=== PATIENT | male | born 1965 | race African-American/Black ===

== ENCOUNTER 2017-12-02 14:42 | Inpatient (IN) | payer OTHER ==
[2017-12-02 16:17] VITALS: BMI 26.3
--- NOTE | 2017-12-02 18:09 | HP ---
COWS - Scale Resting Pulse: 0= [place] 80 or Below Sweatin= Chills/Flushing Restless Observation: 1= Difficult to Sit Still Pupil Size: 0= Normal to Room Light Bone or Joint Aches: 2= Severe Diffuse Aches Runny Nose/ Eye Tearin= Runny Nose/Eyes GI Upset > 30mins: 2= Nausea/Diarrhea Tremor Observation: 2= Slight Tremor Visible Yawning Observation: 1= 1-2x During Session Anxiety or Irritability: 2=Irritable/Anxious Goose Flesh Skin: 0=Smooth Skin COWS Score: 13 CIWA Score - CIWA Score Nausea/Vomitin-Mild Nausea/No Vomiting Muscle Tremors: 3 Anxiety: 3 Agitation: 1-Slight > Activity Paroxysmal Sweats: 3 Orientation: 0-Oriented Tacttile Disturbances: 1-Very Mild Itch/Numbness Auditory Disturbances: 0-None Visual Disturbances: 0-None Headache: 2-Mild CIWA-Ar Total Score: 14 Admission [facility] - HPI Chief Complaint: Patient presents for ETOH withdrawal symptoms. Last drink 4 days ago. Pt drinks a 6 pack of beer and 2 pints of vodka daily. Denies any seizures with withdrawal. Also sniffs heroin and states heroin is sometimes mixed with non prescribed methadone. No report of significant PMH. Denies suicidal ideation and any suicide attempts. Allergies/Adverse Reactions: Allergies Allergy/AdvReac Type Severity Reaction Status Date / Time No Known Allergies Allergy Verified 12/02/17 17:16 Exam Limitations: No Limitations - Ebola screening Have you traveled outside of the country in the last 21 days: No Have you had contact with anyone from an Ebola affected area: No Have you been sick,other than usual withdrawal symptoms: No Do you have a fever: No - Review of Systems Constitutional: Night Sweats, Changes in sleep EENT: reports: Nose Congestion Respiratory: reports: No Symptoms reported Cardiac: reports: No Symptoms Reported GI: reports: Diarrhea, Nausea, Poor Fluid Intake : reports: No Symptoms Reported Musculoskeletal: reports: Muscle Pain Integumentary: reports: Sweating (sweaty on scalp) Neuro: reports: Numbness, Tremors Endocrine: reports: No Symptoms Reported Hematology: reports: No Symptoms Reported Psychiatric: reports: Orientated x3, Anxious, Depressed Patient History - Patient Medical History Hx Asthma: No Hx Chronic Obstructive Pulmonary Disease (COPD): No Hx Cancer: No Hx Cardiac Disorders: No Hx Congestive Heart Failure: No Hx Hypertension: Yes Hx Hypercholesterolemia: No Hx Pacemaker: No HX Cerebrovascular Accident: No Hx Seizures: No Hx Dementia: No Hx Diabetes: No Hx Gastrointestinal Disorders: No Hx Liver Disease: No Hx Genitourinary Disorders: No Hx Sexually Transmitted Disorders: No Hx Renal Disease (ESRD): No Hx Thyroid Disease: No Hx Human Immunodeficiency Virus (HIV): No Hx Hepatitis C: No Hx Depression: Yes Hx Suicide Attempt: No Hx Bipolar Disorder: No Hx Schizophrenia: No - Patient Surgical History Past Surgical History: No Hx Neurologic Surgery: No Hx Cataract Extraction: No Hx Cardiac Surgery: No Hx Lung Surgery: No Hx Breast Surgery: No Hx Breast Biopsy: No Hx Abdominal Surgery: No Hx Appendectomy: No Hx Cholecystectomy: No Hx Genitourinary Surgery: No Hx Section: No Hx Orthopedic Surgery: No Anesthesia Reaction: No - PPD History Previous Implant?: Yes Documented Results: Negative w/o proof Implanted On Prior R Admission?: No - Smoking Cessation Smoking history: Current every day smoker Have you smoked in the past 12 months: Yes Aproximately how many cigarettes per day: 20 Hx Chewing Tobacco Use: No Initiated information on smoking cessation: Yes 'Breaking Loose' booklet given: 12/02/17 - Substance & Tx. History Hx Alcohol Use: Yes Hx Substance Use: Yes Substance Use Type: Alcohol, Cocaine, Heroin Hx Substance Use Treatment: Yes - Substances Abused Heroin Route: Inhalation Frequency: Daily Amount used: 4 bags Age of first use: 16 Date of Last Use: 11/30/17 Cocaine Route: Inhalation Frequency: Daily Amount used: $50-100 Age of first use: 16 Date of Last Use: 11/30/17 Alcohol-vodka/beer Route: Oral Frequency: Daily Amount used: 2 pts./1-6 pk. Age of first use: 16 Date of Last Use: 11/30/17 Family Disease History - Family Disease History Family Disease History: Heart Disease: Grandparent (, HTN), Other: Mother () Admission Physical Exam BHS - Vital Signs Vital Signs: Vital Signs - 24 hr 12/02/17 16:15 Temperature 97.6 F Pulse Rate 69 Respiratory 18 Rate Blood Pressure 141/85 - Physical General Appearance: Yes: Disheveled, Anxious HEENTM: Yes: EOMI, Hearing grossly Normal, KEN, Pharynx Normal Respiratory: Yes: Within Normal Limits, Chest Non-Tender, Lungs Clear, Normal Breath Sounds, No Respiratory Distress Neck: Yes: Within Normal Limits, No masses,lesions,Nodules, Supple Breast: Yes: Breast Exam Deferred Cardiology: Yes: Within Normal Limits, Regular Rhythm, Regular Rate, S1, S2 Abdominal: Yes: Within Normal Limits, Normal Bowel Sounds, Non Tender, Soft Genitourinary: Yes: Within Normal Limits Back: Yes: Muscle Spasm Musculoskeletal: Yes: Within Normal Limits, Back pain Extremities: Yes: Within Normal Limits, Normal Inspection Neurological: Yes: wire stitcher machine II-XII NML intact, Fully Oriented, Numbness, Depressed Affect Integumentary: Yes: Within Normal Limits, Normal Color, Warm, Moist (head and scalp moist) Lymphatic: Yes: Within Normal Limits - Diagnostic (1) Alcohol withdrawal Current Visit: Yes Status: Acute Qualifiers: Complication of substance-induced condition: with unspecified complication Qualified Code(s): F10.239 - Alcohol dependence with withdrawal, unspecified (2) Opioid dependence with withdrawal Current Visit: Yes Status: Acute (3) Nicotine dependence Current Visit: Yes Status: Acute Qualifiers: Substance use status: unspecified nicotine-induced disorder (4) Depressed mood Current Visit: Yes Status: Acute Cleared for Admission [facility] - Detox or Rehab [facility] Level of Care: Medically Managed Detox Regimen/Protocol: Methadone/Librium S Breath Alcohol Content Breath Alcohol Content: 0 Urine Drug Screen - Results Drug Screen Negative: No Urine Drug Screen Results: JIMENA-Cocaine, OPI-Opiates, MTD-Methadone Inpatient Rehab Admission - Initial Determination Are CD services needed?: Yes Free of communicable disease: Yes Not in need of hospitalization: Yes - Rehab Admission Criteria Previous failed treatment: Yes Poor recovery environment: Yes Comorbidities: Yes Lacks judgement: Yes
[2017-12-02] MEDS ORDERED: P-EPHED 60MG/TRIPROLIDI 2.5MG TABLET PO PRN (18:16)
[2017-12-02] MEDS ORDERED: guaiFENesin/D-METHORPHAN HB 10 ML UNIT-DOSE CUPS PO PRN (18:16)
[2017-12-02] MEDS ORDERED: MAGNESIUM CITRATE 300 ML BOTTLE PO PRN (18:16)
[2017-12-02] MEDS ORDERED: MAGNESIUM HYDROX 2400MG/30ML ORAL SUSPENSION 30 ML CUP PO PRN (18:16)
[2017-12-02] MEDS ORDERED: LOPERAMIDE HCL 2 MG CAPSULE PO PRN (18:16)
[2017-12-02] MEDS ORDERED: ACETAMINOPHEN 325 MG TABLET (FP) PO PRN (18:16)
[2017-12-02] MEDS ORDERED: MENTHOL/PHENOL 1 EACH UD MM PRN (18:16)
[2017-12-02] MEDS ORDERED: hydrOXYzine PAMOATE 50 MG CAPSULE (FP) PO PRN (18:16)
[2017-12-02] MEDS ORDERED: MAG HYDROX/AL HYDROX/SIMETH 30 ML UNIT-DOSE CUP PO PRN (18:16)
[2017-12-02] MEDS ORDERED: NICOTINE POLACRILEX 2 MG GUM BUC PRN (18:16)
[2017-12-02] MEDS ORDERED: IBUPROFEN 400 MG TABLET (FP) PO PRN (18:16)
[2017-12-02] MEDS ORDERED: chlordiazePOXIDE HCL 25 MG CAPSULE PO ONE (18:22)
[2017-12-02] MEDS ORDERED: chlordiazePOXIDE HCL 25 MG CAPSULE PO PRN (18:22)
[2017-12-02] MEDS ORDERED: METHADONE HCL 10 MG TABLET (FOR DETOX USE ONLY) PO ONE ×2 (18:30→23:00)
[2017-12-02] MEDS ORDERED: MELATONIN 5 MG TABLETS PO PRN (22:00)
[2017-12-02] MEDS: chlordiazePOXIDE HCL 25 MG CAPSULE PO SCH (22:36)
[2017-12-02] MEDS: THIAMINE HCL 100 MG TABLET (FP) PO SCH (22:37)
[2017-12-03] MEDS: chlordiazePOXIDE HCL 25 MG CAPSULE PO SCH ×4 (05:26→22:48)
[2017-12-03] MEDS ORDERED: METHADONE HCL 10 MG TABLET (FOR DETOX USE ONLY) PO SCH (10:00)
--- NOTE | 2017-12-03 10:15 | EKG ---
Test Reason : Blood Pressure : / mmHG Vent. Rate : 063 BPM Atrial Rate : 063 BPM P-R Int : 182 ms QRS Dur : 090 ms QT Int : 382 ms P-R-T Axes : 072 044 052 degrees QTc Int : 390 ms NORMAL SINUS RHYTHM SEPTAL INFARCT , AGE UNDETERMINED ABNORMAL ECG NO PREVIOUS ECGS AVAILABLE Confirmed by Umer Neves MD ([id number]) on 12/03/2017 10:14:33 AM Referred By: Confirmed By:Umer Neves MD
[2017-12-03] MEDS: PRENATAL VITAMINS W/ FOLIC ACID TABLET (FP) PO SCH (10:45)
[2017-12-03] MEDS: NICOTINE 21 MG/24 HOURS TOPICAL PATCH TD SCH (10:46)
--- NOTE | 2017-12-03 12:03 | PN ---
S CIWA - CIWA Score Nausea/Vomitin Muscle Tremors: 3 Anxiety: 3 Agitation: 2 Paroxysmal Sweats: 1-Minimal Palms Moist Orientation: 0-Oriented Tacttile Disturbances: 1-Very Mild Itch/Numbness Auditory Disturbances: 1-Very Mild Visual Disturbances: 0-None Headache: 2-Mild CIWA-Ar Total Score: 16 BHS COWS - Scale Resting Pulse: 0= [place] 80 or Below Sweatin= Chills/Flushing Restless Observation: 3= Extraneous Movement Pupil Size: 1= Pupils >than Normal Bone or Joint Aches: 2= Severe Diffuse Aches Runny Nose/ Eye Tearin= Runny Nose/Eyes GI Upset > 30mins: 2= Nausea/Diarrhea Tremor Observation of Outstretched Hands: 2= Slight Tremor Visible Yawning Observation: 1= 1-2x During Session Anxiety or Irritability: 2=Irritable/Anxious Goose Flesh Skin: 0=Smooth Skin COWS Score: 16 BHS Progress Note (SOAP) Subjective: ALERT,IRRITABLE,ANXIOUS,INTERRUPTED SLEEP,TREMOR,PAIN IN THE BODY AND BACK Objective: 12/03/17 11:59 Vital Signs Temperature 96.8 F L 12/03/17 10:00 Pulse Rate 85 12/03/17 10:00 Respiratory Rate 20 12/03/17 10:00 Blood Pressure 145/86 12/03/17 10:00 O2 Sat by Pulse Oximetry (%) EKG NSR,90/MIN ST IN V2 NO CHEST PAIN,NO SOB,NO DIZZINESS Assessment: 12/03/17 12:01 WITHDRAWAL SYMPTOM Plan: CONTINUE DETOX,DISCUSSED WITH THE PATIENT FOR THE COMPLIANCE WITH UNIT RULE AND BLOOD TEST,PATIENT UNDERSTAND AND WILL COMPLY
--- NOTE | 2017-12-03 13:41 | CONSULT ---
[facility] Psychiatric Consult - Data Date of interview: 12/03/17 Admission source: [facility] Identifying data: Pt. is a 52 year old male, without kids, unemployed and currently living with a friend. This is patient's first admission to detox at [facility]. Pt. admitted to for alcohol, cocaine, and opioid dependence. Substance Abuse History: Following information confirmed with Mr. Phipps: Smoking Cessation. Smoking history: Current every day smoker. Have you smoked in the past 12 months: Yes. Aproximately how many cigarettes per day: 20. Hx Chewing Tobacco Use: No. Initiated information on smoking cessation: Yes. ' Breaking Loose' booklet given: 12/02/17. - Substance & Tx. History. Hx Alcohol Use: Yes. Hx Substance Use: Yes. Substance Use Type: Alcohol, Cocaine , Heroin. Hx Substance Use Treatment: Yes. - Substances Abused. Heroin. Route: Inhalation. Frequency: Daily. Amount used: 4 bags. Age of first use: 16. Date of Last Use: 11/30/17. Cocaine. Route: Inhalation. Frequency: Daily. Amount used: $50-100. Age of first use: 16. Date of Last Use: . Alcohol-vodka/beer. Route: Oral. Frequency: Daily. Amount used: 2 pts./1-6 pk. Age of first use: 16. Date of Last Use: 11/30/17 Medical History: hypertension Psychiatric History: Pt. with an unclear psychiatric history. Pt. reports multiple psychiatric hospitalizations with the most recent hospitalization occuring approximately 10 years ago. Pt. denies outpatient care. States he is prescribed haldol 10mg, Cogentin 2mg and Mirtzapine 45mg qhs. Pharmacy claims reviewed. Reports taking his psychiatric medication two days ago. Pt. reports getting his medications from "[facility] States he is diagnosed with Schizophrenia. Pt. reports one suicide attempt via laying down on train tracks "years ago." Pt. currently denies suicidal and homicial ideation. Physical/Sexual Abuse/Trauma History: Denies. Mental Status Exam - Mental Status Exam Alert and Oriented to: Time, Place, Person Cognitive Function: Good Patient Appearance: Unkempt Mood: Withdrawn Affect: Mood Congruent Patient Behavior: Sedated (Pt. able to be awaken to complete interview. ), Fatigued, Guarded Speech Pattern: Delayed Voice Loudness: Moderately Soft/Quiet Thought Process: Goal Oriented Thought Disorder: Not Present Hallucinations: Denies Suicidal Ideation: Denies Homicidal Ideation: Denies Insight/Judgement: Poor Sleep: Fair Appetite: Good Muscle strength/Tone: Normal Gait/Station: Normal Psychiatric Findings - Problem List ([place] 1, 2,3) (1) Schizophrenia Current Visit: Yes Status: Chronic Comment: History. (2) Alcohol withdrawal Current Visit: Yes Status: Acute Qualifiers: Complication of substance-induced condition: with unspecified complication Qualified Code(s): F10.239 - Alcohol dependence with withdrawal, unspecified (3) Nicotine dependence Current Visit: Yes Status: Acute Qualifiers: Substance use status: unspecified nicotine-induced disorder (4) Opioid dependence with withdrawal Current Visit: Yes Status: Acute (5) Cocaine dependence Current Visit: Yes Status: Acute - Initial Treatment Plan Initial Treatment Plan: Psychoeducation provided. Detoxification in progress. Pt. refusing to resume/restart his psychotrophic medications due to feeling sedated from current detox protocol medications. Pt. made aware of the risk of the not accepting his psychotrophic medications. No psychotic symptoms noted. Will continue to monitor patient.
[2017-12-03 18:06] LABS: URINE APPEARANCE CLEAR; URINE BILIRUBIN NEGATIVE (<2.0 mg/dL); URINE BLOOD NEGATIVE (NEGATIVE); URINE COLOR YELLOW; URINE GLUCOSE (UA) NEGATIVE (NEGATIVE); URINE KETONE NEGATIVE (NEGATIVE); URINE LEUK ESTERASE NEGATIVE (NEGATIVE); URINE NITRITE NEGATIVE (NEGATIVE); URINE PROTEIN NEGATIVE (NEGATIVE)
[2017-12-03] MEDS: THIAMINE HCL 100 MG TABLET (FP) PO SCH (22:48)
[2017-12-04] MEDS: chlordiazePOXIDE HCL 25 MG CAPSULE PO SCH ×3 (05:57→17:42)
[2017-12-04] MEDS: METHADONE HCL 5 MG TABLET (FOR DETOX USE ONLY) PO SCH (10:11)
[2017-12-04] MEDS: PRENATAL VITAMINS W/ FOLIC ACID TABLET (FP) PO SCH (10:11)
[2017-12-04 10:12] LABS: HEMATOCRIT 37.6 % (35.4-49); HEMOGLOBIN 12.7 GM/dL (11.7-16.9); MCH 31.7 pg (25.7-33.7); MCHC 33.8 g/dl (32.0-35.9); MEAN CELL VOLUME 93.8 fl (80-96); MEAN PLT VOLUME 9.2 fl (7.5-11.1); PLATELET COUNT 156 K/MM3 (134-434); RBC 4.01 M/mm3 (4.00-5.60); RDW 13.5 % (11.9-15.9); WHITE BLOOD COUNT 7.5 K/mm3 (4.0-10.0)
[2017-12-04] MEDS: NICOTINE 21 MG/24 HOURS TOPICAL PATCH TD SCH (10:16)
--- NOTE | 2017-12-04 10:41 | PN ---
S CIWA - CIWA Score Nausea/Vomitin Muscle Tremors: 3 Anxiety: 3 Agitation: 2 Paroxysmal Sweats: 1-Minimal Palms Moist Orientation: 0-Oriented Tacttile Disturbances: 1-Very Mild Itch/Numbness Auditory Disturbances: 1-Very Mild Visual Disturbances: 0-None Headache: 2-Mild CIWA-Ar Total Score: 16 BHS COWS - Scale Resting Pulse: 1= [place] 81-100 Sweatin= Chills/Flushing Restless Observation: 3= Extraneous Movement Pupil Size: 1= Pupils >than Normal Bone or Joint Aches: 2= Severe Diffuse Aches Runny Nose/ Eye Tearin= Runny Nose/Eyes GI Upset > 30mins: 2= Nausea/Diarrhea Tremor Observation of Outstretched Hands: 2= Slight Tremor Visible Yawning Observation: 1= 1-2x During Session Anxiety or Irritability: 2=Irritable/Anxious Goose Flesh Skin: 0=Smooth Skin COWS Score: 17 S Progress Note (SOAP) Subjective: ALERT,IRRITABLE,ANXIOUS,INTERRUPTED SLEEP,PAIN IN THE BODY AND BACK Objective: 12/04/17 10:40 Vital Signs Temperature 99.5 F 12/04/17 09:12 Pulse Rate 93 H 12/04/17 09:12 Respiratory Rate 18 12/04/17 09:12 Blood Pressure 135/93 12/04/17 09:12 O2 Sat by Pulse Oximetry (%) Laboratory Last Values WBC 7.5 K/mm3 (4.0-10.0) 12/04/17 07:00 RBC 4.01 M/mm3 (4.00-5.60) 12/04/17 07:00 Hgb 12.7 GM/dL (11.7-16.9) 12/04/17 07:00 Hct 37.6 % (35.4-49) 12/04/17 07:00 MCV 93.8 fl (80-96) 12/04/17 07:00 MCH 31.7 pg (25.7-33.7) 12/04/17 07:00 MCHC 33.8 g/dl (32.0-35.9) 12/04/17 07:00 RDW 13.5 % (11.9-15.9) 12/04/17 07:00 Plt Count 156 K/MM3 (134-434) 12/04/17 07:00 MPV 9.2 fl (7.5-11.1) 12/04/17 07:00 Urine Color Yellow 12/02/17 17:00 Urine Appearance Clear 12/02/17 17:00 Urine pH 6.0 (5.0-8.0) 12/02/17 17:00 Ur Specific [place] 1.020 (1.001-1.035) 12/02/17 17:00 Urine Protein Negative (NEGATIVE) 12/02/17 17:00 Urine Glucose (UA) Negative (NEGATIVE) 12/02/17 17:00 Urine Ketones Negative (NEGATIVE) 12/02/17 17:00 Urine Blood Negative (NEGATIVE) 12/02/17 17:00 Urine Nitrite Negative (NEGATIVE) 12/02/17 17:00 Urine Bilirubin Negative (<2.0 mg/dL) 12/02/17 17:00 Urine Urobilinogen 2.0 mg/dL (0.2-1.0) 12/02/17 17:00 Ur Leukocyte Esterase Negative (NEGATIVE) 12/02/17 17:00 LABS PENDING Assessment: 12/04/17 10:40 WITHDRAWAL SYMPTOM Plan: CONTINUE DETOX
[2017-12-04 10:52] LABS: CHLORIDE 99 mmol/L (98-107); POTASSIUM 3.8 mmol/L (3.5-5.1); SODIUM 133 mmol/L (136-145)
[2017-12-04 11:28] LABS: ALBUMIN 3.4 g/dl (3.4-5.0); ALK PHOS 71 U/L (45-117); ANION GAP 3 (8-16); BILIRUBIN,TOTAL 0.4 mg/dL (0.2-1.0); BLOOD UREA NITROGEN 18 mg/dL (7-18); CALCIUM 8.8 mg/dL (8.5-10.1); CHOLESTEROL 177 mg/dL (50-200); CO2 31 mmol/L (21-32); CREATININE 0.8 mg/dL (0.7-1.3); GLUCOSE,RANDOM 88 mg/dL (74-106); HDL CHOLESTEROL 65 mg/dL (40-60); LDL CHOLESTEROL (ONLY SJRH) 95 mg/dL (5-100); SGOT/AST 26 U/L (15-37); SGPT/ALT 30 U/L (12-78); TOT PROT 6.7 g/dl (6.4-8.2); TRIGLYCERIDES 104 mg/dL (35-160)
[2017-12-04] MEDS: THIAMINE HCL 100 MG TABLET (FP) PO SCH (22:11)
[2017-12-04] MEDS: chlordiazePOXIDE 5 MG CAPSULE PO SCH (22:12)
[2017-12-05] MEDS: chlordiazePOXIDE 5 MG CAPSULE PO SCH ×3 (05:22→17:40)
--- NOTE | 2017-12-05 10:23 | PN ---
S Progress Note (SOAP) Subjective: ALERT,IRRITABLE,ANXIOUS,INTERRUPTED SLEEP,PAIN IN THE WATER Objective: 12/05/17 10:22 Vital Signs Temperature 99.7 F H 12/05/17 10:13 Pulse Rate 83 12/05/17 10:13 Respiratory Rate 2 L 12/05/17 10:13 Blood Pressure 108/73 12/05/17 10:13 O2 Sat by Pulse Oximetry (%) Laboratory Last Values WBC 7.5 K/mm3 (4.0-10.0) 12/04/17 07:00 RBC 4.01 M/mm3 (4.00-5.60) 12/04/17 07:00 Hgb 12.7 GM/dL (11.7-16.9) 12/04/17 07:00 Hct 37.6 % (35.4-49) 12/04/17 07:00 MCV 93.8 fl (80-96) 12/04/17 07:00 MCH 31.7 pg (25.7-33.7) 12/04/17 07:00 MCHC 33.8 g/dl (32.0-35.9) 12/04/17 07:00 RDW 13.5 % (11.9-15.9) 12/04/17 07:00 Plt Count 156 K/MM3 (134-434) 12/04/17 07:00 MPV 9.2 fl (7.5-11.1) 12/04/17 07:00 Sodium 133 mmol/L (136-145) L 12/04/17 07:00 Potassium 3.8 mmol/L (3.5-5.1) 12/04/17 07:00 Chloride 99 mmol/L (98-107) 12/04/17 07:00 Carbon Dioxide 31 mmol/L (21-32) 12/04/17 07:00 Anion Gap 3 (8-16) L 12/04/17 07:00 BUN 18 mg/dL (7-18) 12/04/17 07:00 Creatinine 0.8 mg/dL (0.7-1.3) 12/04/17 07:00 Creat Clearance w eGFR > 60 (>60) 12/04/17 07:00 Random Glucose 88 mg/dL (74-106) 12/04/17 07:00 Calcium 8.8 mg/dL (8.5-10.1) 12/04/17 07:00 Total Bilirubin 0.4 mg/dL (0.2-1.0) 12/04/17 07:00 AST 26 U/L (15-37) 12/04/17 07:00 ALT 30 U/L (12-78) 12/04/17 07:00 Alkaline Phosphatase 71 U/L (45-117) 12/04/17 07:00 Total Protein 6.7 g/dl (6.4-8.2) 12/04/17 07:00 Albumin 3.4 g/dl (3.4-5.0) 12/04/17 07:00 Triglycerides 104 mg/dL (35-160) 12/04/17 07:00 Cholesterol 177 mg/dL (50-200) 12/04/17 07:00 Total LDL Cholesterol 95 mg/dL (5-100) 12/04/17 07:00 HDL Cholesterol 65 mg/dL (40-60) H 12/04/17 07:00 Urine Color Yellow 12/02/17 17:00 Urine Appearance Clear 12/02/17 17:00 Urine pH 6.0 (5.0-8.0) 12/02/17 17:00 Ur Specific [employer] 1.020 (1.001-1.035) 12/02/17 17:00 Urine Protein Negative (NEGATIVE) 12/02/17 17:00 Urine Glucose (UA) Negative (NEGATIVE) 12/02/17 17:00 Urine Ketones Negative (NEGATIVE) 12/02/17 17:00 Urine Blood Negative (NEGATIVE) 12/02/17 17:00 Urine Nitrite Negative (NEGATIVE) 12/02/17 17:00 Urine Bilirubin Negative (<2.0 mg/dL) 12/02/17 17:00 Urine Urobilinogen 2.0 mg/dL (0.2-1.0) 12/02/17 17:00 Ur Leukocyte Esterase Negative (NEGATIVE) 12/02/17 17:00 Assessment: 12/05/17 10:23 WITHDRAWAL SYMPTOM Plan: CONTINUE DETOX
[2017-12-05] MEDS: PRENATAL VITAMINS W/ FOLIC ACID TABLET (FP) PO SCH (10:35)
[2017-12-05] MEDS: NICOTINE 21 MG/24 HOURS TOPICAL PATCH TD SCH (10:38)
[2017-12-05] MEDS: METHADONE HCL 5 MG TABLET (FOR DETOX USE ONLY) PO SCH (10:38)
[2017-12-05] MEDS: THIAMINE HCL 100 MG TABLET (FP) PO SCH (22:14)
[2017-12-05] MEDS: chlordiazePOXIDE HCL 10 MG CAPSULE PO SCH (22:14)
[2017-12-06] MEDS: chlordiazePOXIDE HCL 10 MG CAPSULE PO SCH ×3 (06:50→17:12)
[2017-12-06] MEDS ORDERED: METHADONE HCL 10 MG TABLET (FOR DETOX USE ONLY) PO SCH (10:00)
[2017-12-06] MEDS: NICOTINE 21 MG/24 HOURS TOPICAL PATCH TD SCH (10:12)
[2017-12-06] MEDS: PRENATAL VITAMINS W/ FOLIC ACID TABLET (FP) PO SCH (10:12)
--- NOTE | 2017-12-06 10:41 | PN ---
S Progress Note (SOAP) Subjective: ALERT,IRRITABLE,INTERRUPTED SLEEP Objective: 12/06/17 10:41 Vital Signs Temperature 98.1 F 12/06/17 10:23 Pulse Rate 89 12/06/17 10:23 Respiratory Rate 18 12/06/17 10:23 Blood Pressure 109/65 12/06/17 10:23 O2 Sat by Pulse Oximetry (%) Assessment: 12/06/17 10:41 WITHDRAWAL SYMPTOM Plan: CONTINUE DETOX,DISCHARGE IN AM
[2017-12-06] MEDS: THIAMINE HCL 100 MG TABLET (FP) PO SCH (22:55)
[2017-12-07] MEDS ORDERED: METHADONE HCL 5 MG TABLET (FOR DETOX USE ONLY) PO SCH (06:00)
[2017-12-07 06:16] VITALS: BP 130/87; PULSE 64; TEMP 97
--- NOTE | 2017-12-07 09:58 | DS ---
[facility] Detox Discharge Summary Admission Date: 12/02/17 Discharge Date: 12/07/17 - History Present History: Alcohol Dependence, Cocaine Dependence, Opioid Dependence Pertinent Past History: 52 y/o man with ETOH, heroin and non prescribed methadone use. He has no significant medical history. - Physical Exam Results Vital Signs: Vital Signs Temperature 97.0 F L 12/07/17 06:00 Pulse Rate 64 12/07/17 06:00 Respiratory Rate 18 12/07/17 06:00 Blood Pressure 130/87 12/07/17 06:00 O2 Sat by Pulse Oximetry (%) Pertinent Admission Physical Exam Findings: withdrawal sx Laboratory Last Values WBC 7.5 K/mm3 (4.0-10.0) 12/04/17 07:00 RBC 4.01 M/mm3 (4.00-5.60) 12/04/17 07:00 Hgb 12.7 GM/dL (11.7-16.9) 12/04/17 07:00 Hct 37.6 % (35.4-49) 12/04/17 07:00 MCV 93.8 fl (80-96) 12/04/17 07:00 MCH 31.7 pg (25.7-33.7) 12/04/17 07:00 MCHC 33.8 g/dl (32.0-35.9) 12/04/17 07:00 RDW 13.5 % (11.9-15.9) 12/04/17 07:00 Plt Count 156 K/MM3 (134-434) 12/04/17 07:00 MPV 9.2 fl (7.5-11.1) 12/04/17 07:00 Sodium 133 mmol/L (136-145) L 12/04/17 07:00 Potassium 3.8 mmol/L (3.5-5.1) 12/04/17 07:00 Chloride 99 mmol/L (98-107) 12/04/17 07:00 Carbon Dioxide 31 mmol/L (21-32) 12/04/17 07:00 Anion Gap 3 (8-16) L 12/04/17 07:00 BUN 18 mg/dL (7-18) 12/04/17 07:00 Creatinine 0.8 mg/dL (0.7-1.3) 12/04/17 07:00 Creat Clearance w eGFR > 60 (>60) 12/04/17 07:00 Random Glucose 88 mg/dL (74-106) 12/04/17 07:00 Calcium 8.8 mg/dL (8.5-10.1) 12/04/17 07:00 Total Bilirubin 0.4 mg/dL (0.2-1.0) 12/04/17 07:00 AST 26 U/L (15-37) 12/04/17 07:00 ALT 30 U/L (12-78) 12/04/17 07:00 Alkaline Phosphatase 71 U/L (45-117) 12/04/17 07:00 Total Protein 6.7 g/dl (6.4-8.2) 12/04/17 07:00 Albumin 3.4 g/dl (3.4-5.0) 12/04/17 07:00 Triglycerides 104 mg/dL (35-160) 12/04/17 07:00 Cholesterol 177 mg/dL (50-200) 12/04/17 07:00 Total LDL Cholesterol 95 mg/dL (5-100) 12/04/17 07:00 HDL Cholesterol 65 mg/dL (40-60) H 12/04/17 07:00 Urine Color Yellow 12/02/17 17:00 Urine Appearance Clear 12/02/17 17:00 Urine pH 6.0 (5.0-8.0) 12/02/17 17:00 Ur Specific [place] 1.020 (1.001-1.035) 12/02/17 17:00 Urine Protein Negative (NEGATIVE) 12/02/17 17:00 Urine Glucose (UA) Negative (NEGATIVE) 12/02/17 17:00 Urine Ketones Negative (NEGATIVE) 12/02/17 17:00 Urine Blood Negative (NEGATIVE) 12/02/17 17:00 Urine Nitrite Negative (NEGATIVE) 12/02/17 17:00 Urine Bilirubin Negative (<2.0 mg/dL) 12/02/17 17:00 Urine Urobilinogen 2.0 mg/dL (0.2-1.0) 12/02/17 17:00 Ur Leukocyte Esterase Negative (NEGATIVE) 12/02/17 17:00 RPR Titer Nonreactive (NONREACTIVE) 12/04/17 07:00 Labs noted - Treatment Hospital Course: Detox Protocol Followed, Detoxed Safely, Responded well, Discharged Condition Good - Medication Discharge Medications: Ambulatory Orders NK [No Known Home Medication] 12/02/17 - Diagnosis (1) Alcohol withdrawal Status: Acute Qualifiers: Complication of substance-induced condition: with unspecified complication Qualified Code(s): F10.239 - Alcohol dependence with withdrawal, unspecified (2) Cocaine dependence Status: Acute (3) Depressed mood Status: Acute (4) Nicotine dependence Status: Acute Qualifiers: Substance use status: unspecified nicotine-induced disorder (5) Opioid dependence with withdrawal Status: Acute (6) Schizophrenia Status: Chronic - AMA Did Patient Leave Against Medical Advice: No
== END 2017-12-07 08:52 | disposition home or self-care (01) | DRG 773 ==
LOC: YASAS 14:42 → Y6N 18:05
PROVIDERS: ADMIT Internal Medicine; ATTEND Internal Medicine
PROC: HZ2ZZZZ Detoxification Services for Substance Abuse Treatment (ICD-10-PCS; principal; 2017-12-02)
DX: F11.23 Opioid dependence with withdrawal (principal); F10.230 Alcohol dependence with withdrawal, uncomplicated; F14.20 Cocaine dependence, uncomplicated; F17.210 Nicotine dependence, cigarettes, uncomplicated; F20.9 Schizophrenia, unspecified; F32.9 Major depressive disorder, single episode, unspecified
CPT/HCPCS: 36415; 80053; 80061; 81003; 83721; 85027; 86593; 93005; 93010

== ENCOUNTER 2018-05-16 18:44 | Inpatient (IN) | payer OTHER ==
[2018-05-16 20:46] VITALS: BMI 25.0
--- NOTE | 2018-05-16 21:59 | HP ---
Admission ROS [facility] - [facility] Chief Complaint: 52 years old male with cocaine dependence is seeking admission to Rehab Allergies/Adverse Reactions: Allergies Allergy/AdvReac Type Severity Reaction Status Date / Time No Known Allergies Allergy Verified 12/02/17 17:16 History of Present Illness: 52 years old male with a long history of cocaine dependence is seeking admission to Rehab. This is his first admission to Rehab. He reports history of asthma, hypertension and depression. He denies suicidal ideation at this time Exam Limitations: No Limitations - Ebola screening Have you traveled outside of the country in the last 21 days: No (N) Have you had contact with anyone from an Ebola affected area: No Have you been sick,other than usual withdrawal symptoms: No Do you have a fever: No - Review of Systems Constitutional: No Symptoms Reported EENT: reports: No Symptoms Reported Respiratory: reports: No Symptoms reported Cardiac: reports: No Symptoms Reported GI: reports: No Symptoms Reported : reports: No Symptoms Reported Musculoskeletal: reports: No Symptoms Reported Integumentary: reports: No Symptoms Reported Neuro: reports: No Symptoms reported Endocrine: reports: No Symptoms Reported Hematology: reports: No Symptoms Reported Psychiatric: reports: No Sypmtoms Reported, Mood/Affect Appropiate, Orientated x3 Other Systems: Reviewed and Negative Patient History - Patient Medical History Hx Asthma: Yes (Not on medication) Hx Chronic Obstructive Pulmonary Disease (COPD): No Hx Cancer: No Hx Cardiac Disorders: No Hx Congestive Heart Failure: No Hx Hypertension: Yes (Not on medication) Hx Hypercholesterolemia: No Hx Pacemaker: No HX Cerebrovascular Accident: No Hx Seizures: No Hx Dementia: No Hx Diabetes: No Hx Gastrointestinal Disorders: No Hx Liver Disease: No Hx Genitourinary Disorders: No Hx Sexually Transmitted Disorders: No Hx Renal Disease (ESRD): No Hx Thyroid Disease: No Hx Human Immunodeficiency Virus (HIV): No Hx Hepatitis C: No Hx Depression: Yes (Not on medication) Hx Suicide Attempt: No Hx Bipolar Disorder: No Hx Schizophrenia: No - Patient Surgical History Past Surgical History: No Hx Neurologic Surgery: No Hx Cataract Extraction: No Hx Cardiac Surgery: No Hx Lung Surgery: No Hx Abdominal Surgery: No Hx Appendectomy: No Hx Cholecystectomy: No Hx Genitourinary Surgery: No Hx Orthopedic Surgery: No Anesthesia Reaction: No - PPD History Previous Implant?: Yes Documented Results: Negative w/proof Implanted On Prior R Admission?: Yes Date: 12/04/17 PPD to be Administered?: No - Reproductive History Patient is a Female of Child Bearing Age (11 -55 yrs old): No (MALE) - Smoking Cessation Smoking history: Current every day smoker Have you smoked in the past 12 months: Yes Aproximately how many cigarettes per day: 20 Hx Chewing Tobacco Use: No Initiated information on smoking cessation: Yes 'Breaking Loose' booklet given: 05/16/18 - Substance & Tx. History Hx Alcohol Use: Yes Hx Substance Use: Yes Substance Use Type: Alcohol, Cocaine Hx Substance Use Treatment: Yes ([facility]) Family Disease History - Family Disease History Family Disease History: Heart Disease: Grandparent (, HTN), Other: Mother () Admission Physical Exam [facility] - Vital Signs Vital Signs: Vital Signs - 24 hr 05/16/18 20:45 Temperature 99.4 F Pulse Rate 70 Respiratory 18 Rate Blood Pressure 108/73 - Physical General Appearance: Yes: No Apparent Distress HEENTM: Yes: EOMI, Normal ENT Inspection, Normocephalic, Normal Voice, KEN Respiratory: Yes: Lungs Clear, Normal Breath Sounds Neck: Yes: Supple Breast: Yes: Breast Exam Deferred Cardiology: Yes: Regular Rhythm, Regular Rate, S1, S2 Abdominal: Yes: Normal Bowel Sounds, Soft Genitourinary: Yes: Within Normal Limits Back: Yes: Normal Inspection Musculoskeletal: Yes: Within Normal Limits, Gait Steady Extremities: Yes: Normal Inspection 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, Alert, Normal Mood/Affect Lymphatic: Yes: Within Normal Limits - Diagnostic (1) Asthma Current Visit: Yes Status: Chronic Qualifiers: Asthma persistence: unspecified (2) Depression Current Visit: Yes Status: Chronic Qualifiers: Depression Type: unspecified Qualified Code(s): F32.9 - Major depressive disorder, single episode, unspecified (3) Hypertension Current Visit: Yes Status: Chronic Qualifiers: Hypertension type: essential hypertension Qualified Code(s): I10 - Essential (primary) hypertension (4) Cocaine dependence Current Visit: No Status: Chronic Qualifiers: Substance use status: uncomplicated Qualified Code(s): F14.20 - Cocaine dependence, uncomplicated (5) Nicotine dependence Current Visit: Yes Status: Chronic Qualifiers: Nicotine product type: cigarettes Substance use status: uncomplicated Qualified Code(s): F17.210 - Nicotine dependence, cigarettes, uncomplicated Cleared for Admission [facility] - Detox or Rehab [facility] Level of Care: Observation Bed Claeared for Rehab Admission: Yes [facility] Breath Alcohol Content Breath Alcohol Content: 0 Urine Drug Screen - Results Drug Screen Negative: No Urine Drug Screen Results: JIMENA-Cocaine, BAR-Barbiturates Inpatient Rehab Admission - Initial Determination Are CD services needed?: Yes Free of communicable disease: Yes Not in need of hospitalization: Yes - Rehab Admission Criteria Previous failed treatment: Yes Poor recovery environment: Yes Comorbidities: Yes Lacks judgement: No Patient is meeting Inpatient Rehab admission criteria:: Yes
[2018-05-16] MEDS ORDERED: MELATONIN 5 MG TABLETS PO PRN (22:00)
[2018-05-16] MEDS ORDERED: P-EPHED 60MG/TRIPROLIDI 2.5MG TABLET PO PRN (22:04)
[2018-05-16] MEDS ORDERED: IBUPROFEN 400 MG TABLET (FP) PO PRN (22:04)
[2018-05-16] MEDS ORDERED: MENTHOL/PHENOL 1 EACH UD MM PRN (22:04)
[2018-05-16] MEDS ORDERED: MAG HYDROX/AL HYDROX/SIMETH 30 ML UNIT-DOSE CUP PO PRN (22:04)
[2018-05-16] MEDS ORDERED: MAGNESIUM HYDROX 2400MG/30ML ORAL SUSPENSION 30 ML CUP PO PRN (22:04)
[2018-05-16] MEDS ORDERED: MAGNESIUM CITRATE 300 ML BOTTLE PO PRN (22:04)
[2018-05-16] MEDS ORDERED: LOPERAMIDE HCL 2 MG CAPSULE PO PRN (22:04)
[2018-05-16] MEDS ORDERED: guaiFENesin/D-METHORPHAN HB 10 ML UNIT-DOSE CUPS PO PRN (22:04)
[2018-05-16] MEDS ORDERED: ACETAMINOPHEN 325 MG TABLET (FP) PO PRN (22:04)
[2018-05-16] MEDS ORDERED: NICOTINE POLACRILEX 2 MG GUM BC PRN (22:04)
[2018-05-17] MEDS: NICOTINE 14 MG/24 HOURS TOPICAL PATCH TD SCH (10:03)
[2018-05-17] MEDS: PRENATAL VITAMINS W/ FOLIC ACID TABLET (FP) PO SCH (10:03)
[2018-05-17 12:38] LABS: HEMATOCRIT 36.2 % (35.4-49); MCH 30.8 pg (25.7-33.7); MCHC 33.1 g/dl (32.0-35.9); MEAN CELL VOLUME 93.1 fl (80-96); MEAN PLT VOLUME 8.4 fl (7.5-11.1); PLATELET COUNT 153 K/MM3 (134-434); RBC 3.88 M/mm3 (4.00-5.60); RDW 13.9 % (11.9-15.9)
[2018-05-17 12:51] LABS: ALBUMIN 3.1 g/dl (3.4-5.0); ANION GAP 10 MMOL/L (8-16); BLOOD UREA NITROGEN 21 mg/dL (7-18); CALCIUM 8.9 mg/dL (8.5-10.1); CHLORIDE 109 mmol/L (98-107); CO2 25 mmol/L (21-32); GLUCOSE,RANDOM 99 mg/dL (74-106); POTASSIUM 4.3 mmol/L (3.5-5.1); SODIUM 144 mmol/L (136-145)
[2018-05-17 12:56] LABS: ALK PHOS 88 U/L (45-117); BILIRUBIN,TOTAL 0.2 mg/dL (0.2-1.0); CREATININE 0.8 mg/dL (0.55-1.3); SGOT/AST 30 U/L (15-37); SGPT/ALT 34 U/L (13-61); TOT PROT 6.1 g/dl (6.4-8.2)
[2018-05-17 13:06] LABS: URINE APPEARANCE CLEAR; URINE BILIRUBIN NEGATIVE (<2.0 mg/dL); URINE COLOR STRAW; URINE GLUCOSE (UA) NEGATIVE (NEGATIVE); URINE KETONE NEGATIVE (NEGATIVE); URINE LEUK ESTERASE NEGATIVE (NEGATIVE); URINE NITRITE NEGATIVE (NEGATIVE); URINE PROTEIN NEGATIVE (NEGATIVE); URINE UROBILINOGEN NEGATIVE mg/dL (0.2-1.0)
[2018-05-17] MEDS: THIAMINE HCL 100 MG TABLET (FP) PO SCH (21:05)
[2018-05-18] MEDS: NICOTINE 14 MG/24 HOURS TOPICAL PATCH TD SCH (10:48)
[2018-05-18] MEDS: PRENATAL VITAMINS W/ FOLIC ACID TABLET (FP) PO SCH (10:49)
[2018-05-18] MEDS: THIAMINE HCL 100 MG TABLET (FP) PO SCH (21:09)
--- NOTE | 2018-05-18 22:32 | EKG ---
Test Reason : Blood Pressure : / mmHG Vent. Rate : 061 BPM Atrial Rate : 061 BPM P-R Int : 186 ms QRS Dur : 086 ms QT Int : 386 ms P-R-T Axes : 075 051 062 degrees QTc Int : 388 ms NORMAL SINUS RHYTHM MODERATE VOLTAGE CRITERIA FOR LVH, MAY BE NORMAL VARIANT BORDERLINE ECG WHEN COMPARED WITH ECG OF 02-DEC-2017 19:05, NO SIGNIFICANT CHANGE WAS FOUND Confirmed by JANE ENGLAND MD ([id number]) on 05/18/2018 10:32:16 PM Referred By: Confirmed By:JANE ENGLAND MD
[2018-05-19] MEDS: PRENATAL VITAMINS W/ FOLIC ACID TABLET (FP) PO SCH (09:58)
[2018-05-19] MEDS: NICOTINE 14 MG/24 HOURS TOPICAL PATCH TD SCH (09:58)
--- NOTE | 2018-05-19 11:32 | HP ---
Psychiatrist Admission - Data Date of interview: 05/19/18 Admission source: [address] [place] [address] Identifying data: this is the first admission to [address] [place] [address] for this 52 years old AA single childless male,resides alone,supported by [facility]. Medical History: HTN. Psychiatric History: Patient is poor historian.He reports first contact with psychiatrist at .Patient was admitted to the hospital in [place] after first psychotic episode(auditory hallucinations).He was dx with Schizophrenia.F/U by psychiatrist at [facility] [address].Current medications:Haldol 10 mg po daily, Zyprexa 5 mg po hs and Cogentin 2 mg po hs. Physical/Sexual Abuse/Trauma History: not willing to discuss Vital Signs: Vital Signs - 24 hr 05/19/18 05/19/18 05/19/18 00:30 03:30 06:41 Temperature 98.7 F Pulse Rate 62 Respiratory 18 18 18 Rate Blood Pressure 99/67 Allergies/Adverse Reactions: Allergies Allergy/AdvReac Type Severity Reaction Status Date / Time No Known Allergies Allergy Verified 12/02/17 17:16 Concur with the findings of this exam: Yes - Substance Abuse/Tx History Hx Alcohol Use: Yes (reports drinking since 16 yo,afew 6 packs daily) Hx Substance Use: Yes (cocaine since 16 yo,heroin (sniffing)since 16 yo,4 bags daily) Substance Use Type: Alcohol, Cocaine, Opiates Hx Substance Use Treatment: Yes (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) Mental Status Exam - Mental Status Exam Cognitive Function: Grossly Intact Patient Appearance: Well Groomed Mood: Sad, Anxious Affect: Mood Congruent, Labile Patient Behavior: Guarded, Suspicious, Cooperative Speech Pattern: Clear Voice Loudness: Normal Thought Process: Goal Oriented Thought Disorder: Being Controlled Hallucinations: Denies Suicidal Ideation: Denies Homicidal Ideation: Denies Insight/Judgement: Fair Sleep: Fair Appetite: Good Muscle strength/Tone: Normal Gait/Station: Normal Psychiatric Findings - Problem List ([place] 1, 2,3) (1) Asthma Current Visit: Yes Status: Chronic Qualifiers: Asthma persistence: unspecified (2) Hypertension Current Visit: Yes Status: Chronic Qualifiers: Hypertension type: essential hypertension Qualified Code(s): I10 - Essential (primary) hypertension (3) Nicotine dependence Current Visit: Yes Status: Chronic Qualifiers: Nicotine product type: cigarettes Substance use status: uncomplicated Qualified Code(s): F17.210 - Nicotine dependence, cigarettes, uncomplicated (4) Cocaine dependence Current Visit: Yes Status: Chronic Qualifiers: Substance use status: uncomplicated Qualified Code(s): F14.20 - Cocaine dependence, uncomplicated (5) Opioid dependence Current Visit: Yes Status: Chronic (6) Schizophrenia Current Visit: Yes Status: Chronic Comment: History. (7) Alcohol dependence Current Visit: Yes Status: Chronic - Initial Treatment Plan Initial Treatment Plan: Haldol 5 mg po bid,Cogentin 2 mg po hs,Remeron 45 mg po hs,Zyprexa 15 mg po hs.will monitor progress.
[2018-05-19] MEDS ORDERED: HALOPERIDOL 5 MG TABLET (FP) PO PRN (12:09)
--- NOTE | 2018-05-19 12:47 | PN ---
[facility] Progress Note Note: Vital Signs Temperature 98.7 F 05/19/18 06:41 Pulse Rate 62 05/19/18 06:41 Respiratory Rate 18 05/19/18 06:41 Blood Pressure 99/67 05/19/18 06:41 O2 Sat by Pulse Oximetry (%) Laboratory Last Values WBC 4.0 K/mm3 (4.0-10.0) 05/17/18 10:15 RBC 3.88 M/mm3 (4.00-5.60) L 05/17/18 10:15 Hgb 12.0 GM/dL (11.7-16.9) 05/17/18 10:15 Hct 36.2 % (35.4-49) 05/17/18 10:15 MCV 93.1 fl (80-96) 05/17/18 10:15 MCH 30.8 pg (25.7-33.7) 05/17/18 10:15 MCHC 33.1 g/dl (32.0-35.9) 05/17/18 10:15 RDW 13.9 % (11.9-15.9) 05/17/18 10:15 Plt Count 153 K/MM3 (134-434) 05/17/18 10:15 MPV 8.4 fl (7.5-11.1) 05/17/18 10:15 Sodium 144 mmol/L (136-145) 05/17/18 10:15 Potassium 4.3 mmol/L (3.5-5.1) 05/17/18 10:15 Chloride 109 mmol/L (98-107) H 05/17/18 10:15 Carbon Dioxide 25 mmol/L (21-32) 05/17/18 10:15 Anion Gap 10 MMOL/L (8-16) 05/17/18 10:15 BUN 21 mg/dL (7-18) H 05/17/18 10:15 Creatinine 0.8 mg/dL (0.55-1.3) 05/17/18 10:15 Creat Clearance w eGFR > 60 (>60) 05/17/18 10:15 Random Glucose 99 mg/dL (74-106) 05/17/18 10:15 Calcium 8.9 mg/dL (8.5-10.1) 05/17/18 10:15 Total Bilirubin 0.2 mg/dL (0.2-1.0) 05/17/18 10:15 AST 30 U/L (15-37) 05/17/18 10:15 ALT 34 U/L (13-61) 05/17/18 10:15 Alkaline Phosphatase 88 U/L (45-117) 05/17/18 10:15 Total Protein 6.1 g/dl (6.4-8.2) L 05/17/18 10:15 Albumin 3.1 g/dl (3.4-5.0) L 05/17/18 10:15 Urine Color Straw 05/17/18 08:00 Urine Appearance Clear 05/17/18 08:00 Urine pH 6.0 (5.0-8.0) 05/17/18 08:00 Ur Specific [place] 1.011 (1.001-1.035) 05/17/18 08:00 Urine Protein Negative (NEGATIVE) 05/17/18 08:00 Urine Glucose (UA) Negative (NEGATIVE) 05/17/18 08:00 Urine Ketones Negative (NEGATIVE) 05/17/18 08:00 Urine Blood 1+ (NEGATIVE) H 05/17/18 08:00 Urine Nitrite Negative (NEGATIVE) 05/17/18 08:00 Urine Bilirubin Negative (<2.0 mg/dL) 05/17/18 08:00 Urine Urobilinogen Negative mg/dL (0.2-1.0) 05/17/18 08:00 Ur Leukocyte Esterase Negative (NEGATIVE) 05/17/18 08:00 Urine WBC (Auto) <1 /hpf (3-5) 05/17/18 08:00 Urine RBC (Auto) 1 /hpf (0-3) 05/17/18 08:00 RPR Titer Nonreactive (NONREACTIVE) 05/17/18 10:15 patient medially stable, very irritable and argumentative Patient reports he uses sleep apnea machine at home, did not bring equipment with him. Patient advise equipment cannot be provided for him at this time. Patient became very irate. continue to monitor
[2018-05-19] MEDS: COLLOIDAL OATMEAL 1 BAR EACH TP PRN (16:04)
[2018-05-19] MEDS: THIAMINE HCL 100 MG TABLET (FP) PO SCH (21:07)
[2018-05-19] MEDS: BENZTROPINE MESYLATE 1 MG TABLET (FP) PO SCH (21:08)
[2018-05-19] MEDS: OLANZapine 7.5 MG TABLET PO SCH (21:08)
[2018-05-19] MEDS: MIRTAZAPINE 30 MG, MIRTAZAPINE 15 MG PO SCH (21:08)
[2018-05-19] MEDS ORDERED: MIRTAZAPINE 15 MG TABLET (FP) PO SCH (22:00)
[2018-05-20] MEDS: PRENATAL VITAMINS W/ FOLIC ACID TABLET (FP) PO SCH (09:45)
[2018-05-20] MEDS: NICOTINE 14 MG/24 HOURS TOPICAL PATCH TD SCH (09:45)
[2018-05-20] MEDS ORDERED: MIRTAZAPINE 30 MG TABLET (FP) PO ONE (19:13)
[2018-05-20] MEDS ORDERED: MIRTAZAPINE 15 MG TABLET (FP) ONE (19:13)
[2018-05-20] MEDS: THIAMINE HCL 100 MG TABLET (FP) PO SCH (21:01)
[2018-05-20] MEDS: MIRTAZAPINE 30 MG, MIRTAZAPINE 15 MG PO SCH (21:02)
[2018-05-20] MEDS: BENZTROPINE MESYLATE 1 MG TABLET (FP) PO SCH (21:02)
[2018-05-20] MEDS: OLANZapine 7.5 MG TABLET PO SCH (21:02)
[2018-05-21] MEDS: NICOTINE 14 MG/24 HOURS TOPICAL PATCH TD SCH (09:41)
[2018-05-21] MEDS: PRENATAL VITAMINS W/ FOLIC ACID TABLET (FP) PO SCH (09:41)
[2018-05-21] MEDS ORDERED: MIRTAZAPINE 15 MG TABLET (FP) ONE (20:16)
[2018-05-21] MEDS ORDERED: MIRTAZAPINE 30 MG TABLET (FP) PO ONE (20:16)
[2018-05-21] MEDS: MIRTAZAPINE 30 MG, MIRTAZAPINE 15 MG PO SCH (21:06)
[2018-05-21] MEDS: HALOPERIDOL 5 MG TABLET (FP) PO SCH (21:06)
[2018-05-21] MEDS: BENZTROPINE MESYLATE 1 MG TABLET (FP) PO SCH (21:06)
[2018-05-21] MEDS: OLANZapine 7.5 MG TABLET PO SCH (21:06)
[2018-05-21] MEDS: THIAMINE HCL 100 MG TABLET (FP) PO SCH (21:06)
[2018-05-22] MEDS: PRENATAL VITAMINS W/ FOLIC ACID TABLET (FP) PO SCH (09:48)
[2018-05-22] MEDS: NICOTINE 14 MG/24 HOURS TOPICAL PATCH TD SCH (09:48)
[2018-05-22] MEDS: COLLOIDAL OATMEAL 1 BAR EACH TP PRN (10:19)
[2018-05-22] MEDS ORDERED: MIRTAZAPINE 15 MG TABLET (FP) ONE (20:04)
[2018-05-22] MEDS ORDERED: MIRTAZAPINE 30 MG TABLET (FP) PO ONE (20:05)
[2018-05-22] MEDS: OLANZapine 7.5 MG TABLET PO SCH (21:04)
[2018-05-22] MEDS: MIRTAZAPINE 30 MG, MIRTAZAPINE 15 MG PO SCH (21:04)
[2018-05-22] MEDS: THIAMINE HCL 100 MG TABLET (FP) PO SCH (21:04)
[2018-05-22] MEDS: HALOPERIDOL 5 MG TABLET (FP) PO SCH (21:05)
[2018-05-22] MEDS: BENZTROPINE MESYLATE 1 MG TABLET (FP) PO SCH (21:05)
[2018-05-23] MEDS: NICOTINE 14 MG/24 HOURS TOPICAL PATCH TD SCH (09:41)
[2018-05-23] MEDS: PRENATAL VITAMINS W/ FOLIC ACID TABLET (FP) PO SCH (09:42)
[2018-05-23] MEDS: SIMETHICONE 80 MG TAB.CHEW (FP) PO PRN (15:01)
[2018-05-23] MEDS ORDERED: MIRTAZAPINE 30 MG TABLET (FP) PO ONE (19:37)
[2018-05-23] MEDS ORDERED: MIRTAZAPINE 15 MG TABLET (FP) ONE (19:37)
[2018-05-23] MEDS: HALOPERIDOL 5 MG TABLET (FP) PO SCH (21:11)
[2018-05-23] MEDS: MIRTAZAPINE 30 MG, MIRTAZAPINE 15 MG PO SCH (21:11)
[2018-05-23] MEDS: BENZTROPINE MESYLATE 1 MG TABLET (FP) PO SCH (21:11)
[2018-05-23] MEDS: OLANZapine 7.5 MG TABLET PO SCH (21:11)
[2018-05-23] MEDS: THIAMINE HCL 100 MG TABLET (FP) PO SCH (21:11)
[2018-05-24] MEDS: NICOTINE 14 MG/24 HOURS TOPICAL PATCH TD SCH (10:44)
[2018-05-24] MEDS: PRENATAL VITAMINS W/ FOLIC ACID TABLET (FP) PO SCH (10:44)
[2018-05-24] MEDS ORDERED: MIRTAZAPINE 30 MG TABLET (FP) PO ONE (20:18)
[2018-05-24] MEDS ORDERED: MIRTAZAPINE 15 MG TABLET (FP) ONE (20:18)
[2018-05-24] MEDS: THIAMINE HCL 100 MG TABLET (FP) PO SCH (21:05)
[2018-05-24] MEDS: MIRTAZAPINE 30 MG, MIRTAZAPINE 15 MG PO SCH (21:05)
[2018-05-24] MEDS: HALOPERIDOL 5 MG TABLET (FP) PO SCH (21:06)
[2018-05-24] MEDS: OLANZapine 7.5 MG TABLET PO SCH (21:06)
[2018-05-24] MEDS: BENZTROPINE MESYLATE 1 MG TABLET (FP) PO SCH (21:06)
[2018-05-25] MEDS: PRENATAL VITAMINS W/ FOLIC ACID TABLET (FP) PO SCH (10:02)
[2018-05-25] MEDS: NICOTINE 14 MG/24 HOURS TOPICAL PATCH TD SCH (10:02)
[2018-05-25] MEDS ORDERED: MIRTAZAPINE 30 MG TABLET (FP) PO ONE (19:07)
[2018-05-25] MEDS ORDERED: MIRTAZAPINE 15 MG TABLET (FP) ONE (19:07)
[2018-05-25] MEDS: BENZTROPINE MESYLATE 1 MG TABLET (FP) PO SCH (23:18)
[2018-05-25] MEDS: OLANZapine 7.5 MG TABLET PO SCH (23:19)
[2018-05-25] MEDS: MIRTAZAPINE 30 MG, MIRTAZAPINE 15 MG PO SCH (23:19)
[2018-05-25] MEDS: HALOPERIDOL 5 MG TABLET (FP) PO SCH (23:19)
[2018-05-25] MEDS: THIAMINE HCL 100 MG TABLET (FP) PO SCH (23:19)
[2018-05-26] MEDS: NICOTINE 14 MG/24 HOURS TOPICAL PATCH TD SCH (11:01)
[2018-05-26] MEDS: PRENATAL VITAMINS W/ FOLIC ACID TABLET (FP) PO SCH (11:01)
[2018-05-26] MEDS: COLLOIDAL OATMEAL 1 BAR EACH TP PRN (14:55)
[2018-05-26] MEDS ORDERED: MIRTAZAPINE 30 MG TABLET (FP) PO ONE (20:06)
[2018-05-26] MEDS ORDERED: MIRTAZAPINE 15 MG TABLET (FP) ONE (20:06)
[2018-05-26] MEDS: OLANZapine 7.5 MG TABLET PO SCH (21:04)
[2018-05-26] MEDS: HALOPERIDOL 5 MG TABLET (FP) PO SCH (21:04)
[2018-05-26] MEDS: BENZTROPINE MESYLATE 1 MG TABLET (FP) PO SCH (21:05)
[2018-05-26] MEDS: MIRTAZAPINE 30 MG, MIRTAZAPINE 15 MG PO SCH (21:05)
[2018-05-26] MEDS: THIAMINE HCL 100 MG TABLET (FP) PO SCH (21:05)
[2018-05-27] MEDS: NICOTINE 14 MG/24 HOURS TOPICAL PATCH TD SCH (11:00)
[2018-05-27] MEDS: PRENATAL VITAMINS W/ FOLIC ACID TABLET (FP) PO SCH (11:00)
[2018-05-27] MEDS ORDERED: HALOPERIDOL 5 MG TABLET (FP) PO PRN (13:35)
--- NOTE | 2018-05-27 13:38 | PN ---
[facility] Progress Note Note: Patient requests to have HS dosage of haldol increased. He is currently on Haldol 5 mg po HS and wants 10 mg po HS instead. Prior to admission, according to pharmacy claim he was on Haldol 35 mg po HS
[2018-05-27] MEDS ORDERED: MIRTAZAPINE 30 MG TABLET (FP) PO ONE (20:06)
[2018-05-27] MEDS ORDERED: MIRTAZAPINE 15 MG TABLET (FP) ONE (20:06)
[2018-05-27] MEDS: THIAMINE HCL 100 MG TABLET (FP) PO SCH (21:02)
[2018-05-27] MEDS: MIRTAZAPINE 30 MG, MIRTAZAPINE 15 MG PO SCH (21:02)
[2018-05-27] MEDS: OLANZapine 7.5 MG TABLET PO SCH (21:02)
[2018-05-27] MEDS: BENZTROPINE MESYLATE 1 MG TABLET (FP) PO SCH (21:02)
[2018-05-28] MEDS: NICOTINE 14 MG/24 HOURS TOPICAL PATCH TD SCH (10:38)
[2018-05-28] MEDS: PRENATAL VITAMINS W/ FOLIC ACID TABLET (FP) PO SCH (10:38)
--- NOTE | 2018-05-28 12:26 | PN ---
Psychiatric Progress Note Vital Signs: Vital Signs Period Temp Pulse Resp BP Sys/Talamantes Pulse Ox Last 24 Hr 97.9 F 71 18-18 121/82 Date of Session: 05/28/18 Chief Complaint:: I need my haldol back,i used to take 30 mg ,brenda still paranoid. HPI: patient addressed Alcohol.Opioid dependence comorbid with schizophrenia.paranoid type. ROS: Significant for BA,HTN. Current Medications: Active Medications Generic Name Dose Route Start Last Admin Trade Name Freq PRN Reason Stop Dose Admin Acetaminophen 650 mg 05/16/18 22:04 Tylenol - PO Q4H PRN FEVER Al Hydroxide/Mg Hydroxide 30 ml 05/16/18 22:04 Mylanta Oral Suspension - PO Q6H PRN DYSPEPSIA Benztropine Mesylate 2 mg 05/19/18 22:00 05/27/18 21:02 Cogentin - PO 2 mg HS ASIF Administration Colloidal Oatmeal 1 applic 05/19/18 15:44 05/26/18 14:55 Aveeno Soap - TP 1 applic DAILY PRN Administration HYGEINE Eucalyptus/Menthol/Phenol/Sorbitol 1 each 05/16/18 22:04 Cepastat Lozenge - MM Q4H PRN SORE THROAT Guaifenesin 10 ml 05/16/18 22:04 Robitussin Dm - PO Q6H PRN COUGH Haloperidol 5 mg 05/19/18 12:09 05/20/18 09:46 Haldol - PO 5 mg BID PRN Administration AGITATION Haloperidol 15 mg 05/28/18 22:00 Haldol - PO HS ASIF Ibuprofen 400 mg 05/16/18 22:04 Motrin - PO Q6H PRN Pain level 4-6 Loperamide HCl 4 mg 05/16/18 22:04 Imodium - PO Q6H PRN DIARRHEA Magnesium Citrate 300 ml 05/16/18 22:04 Citroma - PO Q48H PRN CONSTIPATION Magnesium Hydroxide 30 ml 05/16/18 22:04 Milk Of Magnesia - PO DAILY PRN CONSTIPATION Melatonin 5 mg 05/16/18 22:00 05/19/18 01:57 Melatonin PO 5 mg HS PRN Administration INSOMNIA Mirtazapine 30 mg/ Mirtazapine 45 mg 05/19/18 22:00 05/27/18 21:02 15 mg PO 45 mg HS ASIF Administration Nicotine 14 mg 05/17/18 10:00 05/28/18 10:38 Nicoderm Patch - TD Not Given DAILY ASIF Nicotine Polacrilex 2 mg 05/16/18 22:04 Nicorette Gum - BC Q2H PRN NICOTINE REPLACEMENT RX Olanzapine 15 mg 05/19/18 22:00 05/27/18 21:02 Zyprexa - PO 15 mg HS ASIF Administration Multivit/Folic Acid/Iron 1 tab 05/17/18 10:00 05/28/18 10:38 Vitamins (Sjr) - PO Not Given DAILY ASIF Pseudoephedrine/Triprolidine 1 combo 05/16/18 22:04 05/17/18 20:49 Actifed - PO 1 combo TID PRN Administration NASAL CONGESTION Simethicone 80 mg 05/23/18 14:25 05/23/18 15:01 Mylicon - PO 80 mg Q4H PRN Administration GAS Thiamine HCl 100 mg 05/17/18 22:00 05/27/18 21:02 Vitamin B1 - PO 100 mg HS ASIF Administration Current Side Effect: No Lab tests ordered: No Lab tests reviewed: Yes Provider note:: Chart was revuewed,patient was evaluated,treatment plan including medication managament has been discussed with the patient.HE REPORTS THAT HE IS STILL SOMEWHAT PARANOID AT TIME,Patient was on haldol 30 mg po hs in the past prescribed by his psychiatrist on outpatient basis.porperties of Haldol has been discussed with the patient,side effects,benefits and dose adjustments.Haldol 10 mg po hs prn will be adjusted to 15 mg po hs. psychoeducation,supportive therapy provided. Mental Status Exam - Mental Status Exam Alert and Oriented to: Time, Place, Person Cognitive Function: Grossly Intact Patient Appearance: Well Groomed Mood: Suspicious Affect: Mood Congruent, Labile Patient Behavior: Guarded, Cooperative Speech Pattern: Clear Voice Loudness: Normal Thought Process: Circumstantial, Goal Oriented Thought Disorder: Present Hallucinations: Denies Suicidal Ideation: Denies Homicidal Ideation: Denies Insight/Judgement: Fair Sleep: Fair Appetite: Good Muscle strength/Tone: Normal Gait/Station: Normal Psychiatric Treatment Plan - Problem List (1) Asthma Current Visit: Yes Qualifiers: Asthma persistence: unspecified (2) Hypertension Current Visit: Yes Qualifiers: Hypertension type: essential hypertension Qualified Code(s): I10 - Essential (primary) hypertension (3) Nicotine dependence Current Visit: Yes Qualifiers: Nicotine product type: cigarettes Substance use status: uncomplicated Qualified Code(s): F17.210 - Nicotine dependence, cigarettes, uncomplicated (4) Cocaine dependence Current Visit: Yes Qualifiers: Substance use status: uncomplicated Qualified Code(s): F14.20 - Cocaine dependence, uncomplicated (5) Opioid dependence Current Visit: Yes (6) Schizophrenia Current Visit: Yes Comment: History. (7) Alcohol dependence Current Visit: Yes
[2018-05-28] MEDS ORDERED: MIRTAZAPINE 15 MG TABLET (FP) ONE (20:21)
[2018-05-28] MEDS ORDERED: MIRTAZAPINE 30 MG TABLET (FP) PO ONE (20:22)
[2018-05-28] MEDS: MIRTAZAPINE 30 MG, MIRTAZAPINE 15 MG PO SCH (21:02)
[2018-05-28] MEDS: OLANZapine 7.5 MG TABLET PO SCH (21:02)
[2018-05-28] MEDS: THIAMINE HCL 100 MG TABLET (FP) PO SCH (21:02)
[2018-05-28] MEDS: BENZTROPINE MESYLATE 1 MG TABLET (FP) PO SCH (21:02)
[2018-05-28] MEDS: HALOPERIDOL 5 MG TABLET (FP) PO SCH (21:02)
[2018-05-29] MEDS: PRENATAL VITAMINS W/ FOLIC ACID TABLET (FP) PO SCH (10:13)
[2018-05-29] MEDS: NICOTINE 14 MG/24 HOURS TOPICAL PATCH TD SCH (10:13)
[2018-05-29] MEDS ORDERED: MIRTAZAPINE 15 MG TABLET (FP) ONE (19:31)
[2018-05-29] MEDS ORDERED: MIRTAZAPINE 30 MG TABLET (FP) PO ONE (19:32)
[2018-05-29] MEDS: HALOPERIDOL 5 MG TABLET (FP) PO SCH (21:00)
[2018-05-29] MEDS: THIAMINE HCL 100 MG TABLET (FP) PO SCH (21:00)
[2018-05-29] MEDS: OLANZapine 7.5 MG TABLET PO SCH (21:00)
[2018-05-29] MEDS: MIRTAZAPINE 30 MG, MIRTAZAPINE 15 MG PO SCH (21:01)
[2018-05-29] MEDS: BENZTROPINE MESYLATE 1 MG TABLET (FP) PO SCH (21:01)
[2018-05-30] MEDS: NICOTINE 14 MG/24 HOURS TOPICAL PATCH TD SCH (09:42)
[2018-05-30] MEDS: PRENATAL VITAMINS W/ FOLIC ACID TABLET (FP) PO SCH (09:42)
[2018-05-30] MEDS ORDERED: MIRTAZAPINE 15 MG TABLET (FP) ONE (19:36)
[2018-05-30] MEDS ORDERED: MIRTAZAPINE 30 MG TABLET (FP) PO ONE (19:37)
[2018-05-30] MEDS: OLANZapine 7.5 MG TABLET PO SCH (21:04)
[2018-05-30] MEDS: BENZTROPINE MESYLATE 1 MG TABLET (FP) PO SCH (21:04)
[2018-05-30] MEDS: THIAMINE HCL 100 MG TABLET (FP) PO SCH (21:04)
[2018-05-30] MEDS: HALOPERIDOL 5 MG TABLET (FP) PO SCH (21:04)
[2018-05-30] MEDS: MIRTAZAPINE 30 MG, MIRTAZAPINE 15 MG PO SCH (21:04)
[2018-05-31] MEDS: NICOTINE 14 MG/24 HOURS TOPICAL PATCH TD SCH (11:28)
[2018-05-31] MEDS: PRENATAL VITAMINS W/ FOLIC ACID TABLET (FP) PO SCH (11:28)
[2018-05-31] MEDS ORDERED: MIRTAZAPINE 30 MG TABLET (FP) PO ONE (18:19)
[2018-05-31] MEDS ORDERED: MIRTAZAPINE 15 MG TABLET (FP) ONE (18:19)
[2018-05-31] MEDS: HALOPERIDOL 5 MG TABLET (FP) PO SCH (21:01)
[2018-05-31] MEDS: OLANZapine 7.5 MG TABLET PO SCH (21:01)
[2018-05-31] MEDS: MIRTAZAPINE 30 MG, MIRTAZAPINE 15 MG PO SCH (21:01)
[2018-05-31] MEDS: COLLOIDAL OATMEAL 1 BAR EACH TP PRN (21:01)
[2018-05-31] MEDS: BENZTROPINE MESYLATE 1 MG TABLET (FP) PO SCH (21:02)
[2018-05-31] MEDS: THIAMINE HCL 100 MG TABLET (FP) PO SCH (21:04)
[2018-06-01] MEDS: PRENATAL VITAMINS W/ FOLIC ACID TABLET (FP) PO SCH (10:50)
[2018-06-01] MEDS: NICOTINE 14 MG/24 HOURS TOPICAL PATCH TD SCH (10:50)
[2018-06-01] MEDS ORDERED: MIRTAZAPINE 30 MG TABLET (FP) PO ONE (19:22)
[2018-06-01] MEDS ORDERED: MIRTAZAPINE 15 MG TABLET (FP) ONE (19:22)
[2018-06-01] MEDS: THIAMINE HCL 100 MG TABLET (FP) PO SCH (21:03)
[2018-06-01] MEDS: BENZTROPINE MESYLATE 1 MG TABLET (FP) PO SCH (21:03)
[2018-06-01] MEDS: MIRTAZAPINE 30 MG, MIRTAZAPINE 15 MG PO SCH (21:04)
[2018-06-01] MEDS: OLANZapine 7.5 MG TABLET PO SCH (21:04)
[2018-06-01] MEDS: HALOPERIDOL 5 MG TABLET (FP) PO SCH (21:04)
[2018-06-02] MEDS: NICOTINE 14 MG/24 HOURS TOPICAL PATCH TD SCH (10:17)
[2018-06-02] MEDS: PRENATAL VITAMINS W/ FOLIC ACID TABLET (FP) PO SCH (10:17)
[2018-06-02] MEDS ORDERED: MIRTAZAPINE 15 MG TABLET (FP) ONE (20:22)
[2018-06-02] MEDS ORDERED: MIRTAZAPINE 30 MG TABLET (FP) PO ONE (20:23)
[2018-06-02] MEDS: THIAMINE HCL 100 MG TABLET (FP) PO SCH (21:02)
[2018-06-02] MEDS: BENZTROPINE MESYLATE 1 MG TABLET (FP) PO SCH (21:02)
[2018-06-02] MEDS: OLANZapine 7.5 MG TABLET PO SCH (21:03)
[2018-06-02] MEDS: HALOPERIDOL 5 MG TABLET (FP) PO SCH (21:03)
[2018-06-02] MEDS: MIRTAZAPINE 30 MG, MIRTAZAPINE 15 MG PO SCH (21:03)
[2018-06-03] MEDS: PRENATAL VITAMINS W/ FOLIC ACID TABLET (FP) PO SCH (09:51)
[2018-06-03] MEDS: NICOTINE 14 MG/24 HOURS TOPICAL PATCH TD SCH (09:51)
[2018-06-03] MEDS ORDERED: MIRTAZAPINE 15 MG TABLET (FP) ONE (20:15)
[2018-06-03] MEDS ORDERED: MIRTAZAPINE 30 MG TABLET (FP) PO ONE (20:15)
[2018-06-03] MEDS: MIRTAZAPINE 30 MG, MIRTAZAPINE 15 MG PO SCH (21:04)
[2018-06-03] MEDS: THIAMINE HCL 100 MG TABLET (FP) PO SCH (21:04)
[2018-06-03] MEDS: BENZTROPINE MESYLATE 1 MG TABLET (FP) PO SCH (21:04)
[2018-06-03] MEDS: OLANZapine 7.5 MG TABLET PO SCH (21:04)
[2018-06-03] MEDS: HALOPERIDOL 5 MG TABLET (FP) PO SCH (21:04)
[2018-06-04] MEDS: PRENATAL VITAMINS W/ FOLIC ACID TABLET (FP) PO SCH (10:32)
[2018-06-04] MEDS: NICOTINE 14 MG/24 HOURS TOPICAL PATCH TD SCH (10:32)
[2018-06-04] MEDS ORDERED: MIRTAZAPINE 30 MG TABLET (FP) PO ONE (19:03)
[2018-06-04] MEDS ORDERED: MIRTAZAPINE 15 MG TABLET (FP) ONE (19:03)
[2018-06-04] MEDS: MIRTAZAPINE 30 MG, MIRTAZAPINE 15 MG PO SCH (21:04)
[2018-06-04] MEDS: HALOPERIDOL 5 MG TABLET (FP) PO SCH (21:04)
[2018-06-04] MEDS: THIAMINE HCL 100 MG TABLET (FP) PO SCH (21:05)
[2018-06-04] MEDS: BENZTROPINE MESYLATE 1 MG TABLET (FP) PO SCH (21:05)
[2018-06-04] MEDS: OLANZapine 7.5 MG TABLET PO SCH (21:05)
[2018-06-04] MEDS: COLLOIDAL OATMEAL 1 BAR EACH TP PRN (21:08)
[2018-06-05] MEDS: NICOTINE 14 MG/24 HOURS TOPICAL PATCH TD SCH (10:00)
[2018-06-05] MEDS: PRENATAL VITAMINS W/ FOLIC ACID TABLET (FP) PO SCH (10:00)
[2018-06-05 17:29] LABS: URINE APPEARANCE CLEAR; URINE BILIRUBIN NEGATIVE (<2.0 mg/dL); URINE COLOR LTYELLOW; URINE GLUCOSE (UA) NEGATIVE (NEGATIVE); URINE KETONE NEGATIVE (NEGATIVE); URINE LEUK ESTERASE NEGATIVE (NEGATIVE); URINE NITRITE NEGATIVE (NEGATIVE); URINE PROTEIN NEGATIVE (NEGATIVE); URINE UROBILINOGEN NEGATIVE mg/dL (0.2-1.0)
[2018-06-05] MEDS ORDERED: MIRTAZAPINE 30 MG TABLET (FP) PO ONE (20:43)
[2018-06-05] MEDS ORDERED: MIRTAZAPINE 15 MG TABLET (FP) ONE (20:43)
[2018-06-05] MEDS: HALOPERIDOL 5 MG TABLET (FP) PO SCH (21:08)
[2018-06-05] MEDS: OLANZapine 7.5 MG TABLET PO SCH (21:08)
[2018-06-05] MEDS: THIAMINE HCL 100 MG TABLET (FP) PO SCH (21:08)
[2018-06-05] MEDS: MIRTAZAPINE 30 MG, MIRTAZAPINE 15 MG PO SCH (21:08)
[2018-06-05] MEDS: BENZTROPINE MESYLATE 1 MG TABLET (FP) PO SCH (21:08)
[2018-06-06] MEDS: PRENATAL VITAMINS W/ FOLIC ACID TABLET (FP) PO SCH (10:38)
[2018-06-06] MEDS: NICOTINE 14 MG/24 HOURS TOPICAL PATCH TD SCH (10:38)
--- NOTE | 2018-06-06 13:57 | PN ---
[facility] Progress Note Note: PT REQUESTING REPEAT UA RESULT. Laboratory Tests 05/17/18 05/17/18 05/17/18 08:00 10:15 10:15 WBC 4.0 RBC 3.88 L Hgb 12.0 Hct 36.2 MCV 93.1 MCH 30.8 MCHC 33.1 RDW 13.9 Plt Count 153 MPV 8.4 Sodium 144 Potassium 4.3 Chloride 109 H Carbon Dioxide 25 Anion Gap 10 BUN 21 H Creatinine 0.8 Creat Clearance w eGFR > 60 Random Glucose 99 Calcium 8.9 Total Bilirubin 0.2 AST 30 ALT 34 Alkaline Phosphatase 88 Total Protein 6.1 L Albumin 3.1 L Urine Color Straw Urine Appearance Clear Urine pH 6.0 Ur Specific [place] 1.011 Urine Protein Negative Urine Glucose (UA) Negative Urine Ketones Negative Urine Blood 1+ H Urine Nitrite Negative Urine Bilirubin Negative Urine Urobilinogen Negative Ur Leukocyte Esterase Negative Urine WBC (Auto) <1 Urine RBC (Auto) 1 RPR Titer 05/17/18 06/05/18 10:15 14:30 WBC RBC Hgb Hct MCV MCH MCHC RDW Plt Count MPV Sodium Potassium Chloride Carbon Dioxide Anion Gap BUN Creatinine Creat Clearance w eGFR Random Glucose Calcium Total Bilirubin AST ALT Alkaline Phosphatase Total Protein Albumin Urine Color Ltyellow Urine Appearance Clear Urine pH 6.0 Ur Specific [place] 1.018 Urine Protein Negative Urine Glucose (UA) Negative Urine Ketones Negative Urine Blood Negative Urine Nitrite Negative Urine Bilirubin Negative Urine Urobilinogen Negative Ur Leukocyte Esterase Negative Urine WBC (Auto) Urine RBC (Auto) RPR Titer Nonreactive REPEAT UA WNL BLOOD IN URINE RESOLVED
[2018-06-06] MEDS ORDERED: MIRTAZAPINE 30 MG TABLET (FP) PO ONE (20:09)
[2018-06-06] MEDS ORDERED: MIRTAZAPINE 15 MG TABLET (FP) ONE (20:09)
[2018-06-06] MEDS: BENZTROPINE MESYLATE 1 MG TABLET (FP) PO SCH (21:06)
[2018-06-06] MEDS: MIRTAZAPINE 30 MG, MIRTAZAPINE 15 MG PO SCH (21:06)
[2018-06-06] MEDS: HALOPERIDOL 5 MG TABLET (FP) PO SCH (21:06)
[2018-06-06] MEDS: THIAMINE HCL 100 MG TABLET (FP) PO SCH (21:06)
[2018-06-06] MEDS: OLANZapine 7.5 MG TABLET PO SCH (21:06)
[2018-06-07] MEDS: PRENATAL VITAMINS W/ FOLIC ACID TABLET (FP) PO SCH (09:41)
[2018-06-07] MEDS: NICOTINE 14 MG/24 HOURS TOPICAL PATCH TD SCH (09:41)
[2018-06-07] MEDS ORDERED: MIRTAZAPINE 30 MG TABLET (FP) PO ONE (19:57)
[2018-06-07] MEDS ORDERED: MIRTAZAPINE 15 MG TABLET (FP) ONE (19:57)
[2018-06-07] MEDS: OLANZapine 7.5 MG TABLET PO SCH (23:48)
[2018-06-07] MEDS: HALOPERIDOL 5 MG TABLET (FP) PO SCH (23:48)
[2018-06-07] MEDS: BENZTROPINE MESYLATE 1 MG TABLET (FP) PO SCH (23:49)
[2018-06-07] MEDS: MIRTAZAPINE 30 MG, MIRTAZAPINE 15 MG PO SCH (23:49)
[2018-06-07] MEDS: THIAMINE HCL 100 MG TABLET (FP) PO SCH (23:49)
[2018-06-08] MEDS: PRENATAL VITAMINS W/ FOLIC ACID TABLET (FP) PO SCH (10:13)
[2018-06-08] MEDS: NICOTINE 14 MG/24 HOURS TOPICAL PATCH TD SCH (10:13)
[2018-06-08] MEDS ORDERED: MIRTAZAPINE 15 MG TABLET (FP) ONE (20:15)
[2018-06-08] MEDS ORDERED: MIRTAZAPINE 30 MG TABLET (FP) PO ONE (20:15)
[2018-06-08] MEDS: HALOPERIDOL 5 MG TABLET (FP) PO SCH (21:02)
[2018-06-08] MEDS: THIAMINE HCL 100 MG TABLET (FP) PO SCH (21:03)
[2018-06-08] MEDS: BENZTROPINE MESYLATE 1 MG TABLET (FP) PO SCH (21:03)
[2018-06-08] MEDS: OLANZapine 7.5 MG TABLET PO SCH (21:03)
[2018-06-08] MEDS: MIRTAZAPINE 30 MG, MIRTAZAPINE 15 MG PO SCH (21:03)
[2018-06-08] MEDS: COLLOIDAL OATMEAL 1 BAR EACH TP PRN (21:05)
[2018-06-09] MEDS: NICOTINE 14 MG/24 HOURS TOPICAL PATCH TD SCH (09:52)
[2018-06-09] MEDS: PRENATAL VITAMINS W/ FOLIC ACID TABLET (FP) PO SCH (09:52)
[2018-06-09] MEDS ORDERED: MIRTAZAPINE 15 MG TABLET (FP) ONE (20:00)
[2018-06-09] MEDS ORDERED: MIRTAZAPINE 30 MG TABLET (FP) PO ONE (20:00)
[2018-06-09] MEDS: MIRTAZAPINE 30 MG, MIRTAZAPINE 15 MG PO SCH (21:02)
[2018-06-09] MEDS: BENZTROPINE MESYLATE 1 MG TABLET (FP) PO SCH (21:03)
[2018-06-09] MEDS: HALOPERIDOL 5 MG TABLET (FP) PO SCH (21:03)
[2018-06-09] MEDS: OLANZapine 7.5 MG TABLET PO SCH (21:04)
[2018-06-09] MEDS: THIAMINE HCL 100 MG TABLET (FP) PO SCH (21:05)
[2018-06-09] MEDS: SIMETHICONE 80 MG TAB.CHEW (FP) PO PRN (23:26)
[2018-06-10] MEDS: NICOTINE 14 MG/24 HOURS TOPICAL PATCH TD SCH (09:28)
[2018-06-10] MEDS: PRENATAL VITAMINS W/ FOLIC ACID TABLET (FP) PO SCH (09:28)
[2018-06-10] MEDS ORDERED: MIRTAZAPINE 15 MG TABLET (FP) ONE (20:09)
[2018-06-10] MEDS ORDERED: MIRTAZAPINE 30 MG TABLET (FP) PO ONE (20:09)
[2018-06-10] MEDS: MIRTAZAPINE 30 MG, MIRTAZAPINE 15 MG PO SCH (21:02)
[2018-06-10] MEDS: HALOPERIDOL 5 MG TABLET (FP) PO SCH (21:02)
[2018-06-10] MEDS: BENZTROPINE MESYLATE 1 MG TABLET (FP) PO SCH (21:03)
[2018-06-10] MEDS: OLANZapine 7.5 MG TABLET PO SCH (21:04)
[2018-06-10] MEDS: THIAMINE HCL 100 MG TABLET (FP) PO SCH (22:30)
[2018-06-11] MEDS: PRENATAL VITAMINS W/ FOLIC ACID TABLET (FP) PO SCH (10:21)
[2018-06-11] MEDS: NICOTINE 14 MG/24 HOURS TOPICAL PATCH TD SCH (10:21)
[2018-06-11] MEDS ORDERED: MIRTAZAPINE 15 MG TABLET (FP) ONE (18:39)
[2018-06-11] MEDS ORDERED: MIRTAZAPINE 30 MG TABLET (FP) PO ONE (18:40)
[2018-06-11] MEDS: BENZTROPINE MESYLATE 1 MG TABLET (FP) PO SCH (21:02)
[2018-06-11] MEDS: MIRTAZAPINE 30 MG, MIRTAZAPINE 15 MG PO SCH (21:04)
[2018-06-11] MEDS: THIAMINE HCL 100 MG TABLET (FP) PO SCH (21:04)
[2018-06-11] MEDS: OLANZapine 7.5 MG TABLET PO SCH (21:04)
[2018-06-11] MEDS: HALOPERIDOL 5 MG TABLET (FP) PO SCH (21:05)
[2018-06-12] MEDS: PRENATAL VITAMINS W/ FOLIC ACID TABLET (FP) PO SCH (09:47)
[2018-06-12] MEDS: NICOTINE 14 MG/24 HOURS TOPICAL PATCH TD SCH (09:47)
--- NOTE | 2018-06-12 13:28 | PN ---
Psychiatric Progress Note Vital Signs: Vital Signs Period Temp Pulse Resp BP Sys/Talamantes Pulse Ox Last 24 Hr 98.7 F 63 18-18 130/97 Date of Session: 06/12/18 Chief Complaint:: "discharge" HPI: Patient was admitted to for alcohol and cocaine dependence. ROS: hypertension Current Medications: Active Medications Generic Name Dose Route Start Last Admin Trade Name Freq PRN Reason Stop Dose Admin Acetaminophen 650 mg 05/16/18 22:04 Tylenol - PO Q4H PRN FEVER Al Hydroxide/Mg Hydroxide 30 ml 05/16/18 22:04 Mylanta Oral Suspension - PO Q6H PRN DYSPEPSIA Benztropine Mesylate 2 mg 05/19/18 22:00 06/11/18 21:02 Cogentin - PO 2 mg HS ASIF Administration Colloidal Oatmeal 1 applic 05/19/18 15:44 06/08/18 21:05 Aveeno Soap - TP 1 applic DAILY PRN Administration HYGEINE Eucalyptus/Menthol/Phenol/Sorbitol 1 each 05/16/18 22:04 Cepastat Lozenge - MM Q4H PRN SORE THROAT Guaifenesin 10 ml 05/16/18 22:04 Robitussin Dm - PO Q6H PRN COUGH Haloperidol 5 mg 05/19/18 12:09 05/20/18 09:46 Haldol - PO 5 mg BID PRN Administration AGITATION Haloperidol 15 mg 05/28/18 22:00 06/11/18 21:05 Haldol - PO 15 mg HS ASIF Administration Ibuprofen 400 mg 05/16/18 22:04 Motrin - PO Q6H PRN Pain level 4-6 Loperamide HCl 4 mg 05/16/18 22:04 Imodium - PO Q6H PRN DIARRHEA Magnesium Citrate 300 ml 05/16/18 22:04 Citroma - PO Q48H PRN CONSTIPATION Magnesium Hydroxide 30 ml 05/16/18 22:04 Milk Of Magnesia - PO DAILY PRN CONSTIPATION Melatonin 5 mg 05/16/18 22:00 05/19/18 01:57 Melatonin PO 5 mg HS PRN Administration INSOMNIA Mirtazapine 30 mg/ Mirtazapine 45 mg 05/19/18 22:00 06/11/18 21:04 15 mg PO 45 mg HS ASIF Administration Nicotine 14 mg 05/17/18 10:00 06/12/18 09:47 Nicoderm Patch - TD Not Given DAILY ASIF Nicotine Polacrilex 2 mg 05/16/18 22:04 Nicorette Gum - BC Q2H PRN NICOTINE REPLACEMENT RX Olanzapine 15 mg 05/19/18 22:00 06/11/18 21:04 Zyprexa - PO 15 mg HS ASIF Administration Multivit/Folic Acid/Iron 1 tab 05/17/18 10:00 06/12/18 09:47 Vitamins (Sjr) - PO Not Given DAILY ASIF Pseudoephedrine/Triprolidine 1 combo 05/16/18 22:04 05/17/18 20:49 Actifed - PO 1 combo TID PRN Administration NASAL CONGESTION Simethicone 80 mg 05/23/18 14:25 06/09/18 23:26 Mylicon - PO 80 mg Q4H PRN Administration GAS Thiamine HCl 100 mg 05/17/18 22:00 06/11/18 21:04 Vitamin B1 - PO Not Given HS ASIF Medication(s) Change(s): No. Current Side Effect: No Lab tests ordered: No Lab tests reviewed: Yes Provider note:: Patient will complete the rehabilitation program on 06/13/18. He has met his treatment goals and will continue to address additional issues at "the bridge". He reports being able to identify behaviors that contribute to relapsing. Patient has also learned the importance of changing one's behavior and the need for better structure in his life in order to maintain abstience. Patient was compliant with his psychotrophic medications of haldol 15mg HS + Zyprexa 15mg HS + Mirtazapine 45mg + Cogentin 2mg. Prescriptions will not be sent to patient's pharmacy. He states an individual brings his medications to him and therefore does not require a prescription from continuity writer. He also reports having medications at home. He denies urges or thoughts to hurt himself or others. Patient is stable for discharge on 06/13/18. Total face to face time:: 35 Mental Status Exam - Mental Status Exam Alert and Oriented to: Time, Place, Person Cognitive Function: Good Patient Appearance: Well Groomed Mood: Hopeful, Euthymic Affect: Appropriate, Mood Congruent Patient Behavior: Talkative, Appropriate, Cooperative Speech Pattern: Appropriate Voice Loudness: Normal Thought Process: Intact, Goal Oriented Thought Disorder: Not Present Hallucinations: Denies Suicidal Ideation: Denies Homicidal Ideation: Denies Insight/Judgement: Good Sleep: Well Appetite: Good Muscle strength/Tone: Normal Gait/Station: Normal Psychiatric Treatment Plan - Problem List (1) Alcohol dependence Current Visit: Yes (2) Cocaine dependence Current Visit: Yes Qualifiers: Substance use status: uncomplicated Qualified Code(s): F14.20 - Cocaine dependence, uncomplicated (3) Nicotine dependence Current Visit: Yes Qualifiers: Nicotine product type: cigarettes Substance use status: uncomplicated Qualified Code(s): F17.210 - Nicotine dependence, cigarettes, uncomplicated (4) Opioid dependence Current Visit: Yes (5) Schizophrenia Current Visit: Yes Comment: History.
[2018-06-12] MEDS ORDERED: MIRTAZAPINE 30 MG TABLET (FP) PO ONE (18:06)
[2018-06-12] MEDS ORDERED: MIRTAZAPINE 15 MG TABLET (FP) ONE (18:06)
[2018-06-12] MEDS: HALOPERIDOL 5 MG TABLET (FP) PO SCH (21:01)
[2018-06-12] MEDS: MIRTAZAPINE 30 MG, MIRTAZAPINE 15 MG PO SCH (21:01)
[2018-06-12] MEDS: THIAMINE HCL 100 MG TABLET (FP) PO SCH (21:02)
[2018-06-12] MEDS: OLANZapine 7.5 MG TABLET PO SCH (21:02)
[2018-06-12] MEDS: BENZTROPINE MESYLATE 1 MG TABLET (FP) PO SCH (21:02)
[2018-06-13 06:51] VITALS: BP 148/93; PULSE 66; TEMP 98.8
[2018-06-13] MEDS: PRENATAL VITAMINS W/ FOLIC ACID TABLET (FP) PO SCH (10:11)
[2018-06-13] MEDS: NICOTINE 14 MG/24 HOURS TOPICAL PATCH TD SCH (10:11)
== END 2018-06-13 10:47 | disposition home or self-care (01) | DRG 772 ==
LOC: YASAS 18:44 → Y5N 22:49
PROVIDERS: ADMIT Psychiatry & Neurology Psychiatry; ATTEND Psychiatry & Neurology Psychiatry
PROC: HZ42ZZZ Group Counseling for Substance Abuse Treatment, Cognitive-Behavioral (ICD-10-PCS; principal; 2018-05-16)
DX: F11.20 Opioid dependence, uncomplicated (principal); F10.20 Alcohol dependence, uncomplicated; F14.20 Cocaine dependence, uncomplicated; F17.210 Nicotine dependence, cigarettes, uncomplicated; F20.9 Schizophrenia, unspecified; I10 Essential (primary) hypertension; J45.909 Unspecified asthma, uncomplicated
CPT/HCPCS: 36415; 80053; 81003; 81015; 85027; 86593; 93005; 93010

== ENCOUNTER 2019-05-26 10:38 | Inpatient (IN) | payer OTHER ==
[2019-05-26 12:33] VITALS: BMI 28.1
--- NOTE | 2019-05-26 13:44 | HP ---
CIWA Score - Admission Criteria OASAS Guidelines: Admission for Medically Managed Detox: Requires at least one of the followin. CIWA greater than 12 2. Seizures within the past 24 hours 3. Delirium tremens within the past 24 hours 4. Hallucinations within the past 24 hours 5. Acute intervention needed for co occurring medical disorder 6. Acute intervention needed for co occurring psychiatric disorder 7. Severe withdrawal that cannot be handled at a lower level of care (continued vomiting, continued diarrhea, abnormal vital signs) requiring intravenous medication and/or fluids 8. Admission ROS [facility] Chief Complaint: I recently relapsed. I was clean for one year and received detox at [facility] in [place] and recently d/c. Allergies/Adverse Reactions: Allergies Allergy/AdvReac Type Severity Reaction Status Date / Time No Known Allergies Allergy Verified 05/26/19 12:25 History of Present Illness: Pt is a 53yr old male with a history of alcohol and cocaine dependence seeking rehab after receiving detox at [facility]. Pt was admitted to detox facility from 05/19-05/22/19. Pt is now here ready for rehab and receive further treatment. Pt has a h/o of depression and schizophrenia but today he is deny these diagnosis and states he is not taking medication. Exam Limitations: No Limitations - Ebola screening Have you traveled outside of the country in the last 21 days: No (N) Have you had contact with anyone from an Ebola affected area: No Have you been sick,other than usual withdrawal symptoms: No Do you have a fever: No - Review of Systems Constitutional: No Symptoms Reported EENT: reports: No Symptoms Reported Respiratory: reports: No Symptoms reported Cardiac: reports: No Symptoms Reported GI: reports: No Symptoms Reported : reports: No Symptoms Reported Musculoskeletal: reports: No Symptoms Reported Integumentary: reports: No Symptoms Reported Neuro: reports: No Symptoms reported Endocrine: reports: No Symptoms Reported Hematology: reports: No Symptoms Reported Psychiatric: reports: Judgement Intact, Mood/Affect Appropiate, Orientated x3, Agitated, Anxious Other Systems: Reviewed and Negative Patient History - Patient Medical History Hx Anemia: No Hx Asthma: Yes (Not on medication) Hx Chronic Obstructive Pulmonary Disease (COPD): No Hx Cancer: No Hx Cardiac Disorders: No Hx Congestive Heart Failure: No Hx Hypertension: No Hx Hypercholesterolemia: Yes (not taking meds) Hx Pacemaker: No HX Cerebrovascular Accident: No Hx Seizures: No Hx Dementia: No Hx Diabetes: No Hx Gastrointestinal Disorders: No Hx Liver Disease: No Hx Genitourinary Disorders: No Hx Sexually Transmitted Disorders: No Hx Renal Disease (ESRD): No Hx Thyroid Disease: No Hx Human Immunodeficiency Virus (HIV): No (pt denies ) Hx Hepatitis C: No (pt denies) Hx Depression: Yes (pt not taking medication) Hx Suicide Attempt: No Hx Bipolar Disorder: No Hx Schizophrenia: Yes (pt not taking medication) - Patient Surgical History Past Surgical History: No Hx Neurologic Surgery: No Hx Cataract Extraction: No Hx Cardiac Surgery: No Hx Lung Surgery: No Hx Breast Surgery: No Hx Breast Biopsy: No Hx Abdominal Surgery: No Hx Appendectomy: No Hx Cholecystectomy: No Hx Genitourinary Surgery: No Hx Section: No Hx Orthopedic Surgery: No Anesthesia Reaction: No - PPD History Previous Implant?: Yes Documented Results: Negative w/proof Implanted On Prior [facility] Admission?: No Results: cxr negative PPD to be Administered?: No - Reproductive History Patient is a Female of Child Bearing Age (11 -55 yrs old): No - Smoking Cessation Smoking history: Current every day smoker Have you smoked in the past 12 months: Yes Aproximately how many cigarettes per day: 20 Hx Chewing Tobacco Use: No Initiated information on smoking cessation: Yes 'Breaking Loose' booklet given: 05/26/19 - Substance & Tx. History Hx Alcohol Use: Yes Hx Substance Use: Yes Substance Use Type: Alcohol, Cocaine Hx Substance Use Treatment: No (last detox [facility] 05/2019) - Substances abused Cocaine Substance route: Inhalation Frequency: 3-6 times per week Amount used: 20 dollars Age of first use: 20 Date of last use: 05/21/19 Alcohol Frequency: 1-2 times per week Amount used: a shot of LEORA Age of first use: 20 Date of last use: 05/25/19 Admission Physical Exam [facility] - Vital Signs Vital Signs: Vital Signs - 24 hr 05/26/19 12:24 Temperature 98.2 F Pulse Rate 65 Respiratory 16 Rate Blood Pressure 111/78 - Physical General Appearance: Yes: Appropriately Dressed, Mild Distress, Moderate Distress HEENTM: Yes: Hearing grossly Normal, Normal Voice Respiratory: Yes: Lungs Clear, Normal Breath Sounds, No Respiratory Distress Neck: Yes: No masses,lesions,Nodules Breast: Yes: Within Normal Limits Cardiology: Yes: Regular Rhythm, Regular Rate, S1, S2 Abdominal: Yes: Normal Bowel Sounds, Non Tender, Soft Genitourinary: Yes: Within Normal Limits Back: Yes: Normal Inspection Musculoskeletal: Yes: full range of Motion Extremities: Yes: Normal Capillary Refill, Non-Tender Neurological: Yes: Fully Oriented, Alert, Normal Response Integumentary: Yes: Normal Color Lymphatic: Yes: Within Normal Limits - Diagnostic (1) Alcohol dependence Current Visit: Yes Status: Chronic Qualifiers: Substance use status: in remission Qualified Code(s): F10.21 - Alcohol dependence, in remission (2) Asthma Current Visit: Yes Status: Chronic Qualifiers: Asthma severity: unspecified severity Asthma persistence: unspecified Asthma complication type: uncomplicated Qualified Code(s): J45.909 - Unspecified asthma, uncomplicated (3) Cocaine dependence Current Visit: Yes Status: Chronic Qualifiers: Substance use status: uncomplicated Qualified Code(s): F14.20 - Cocaine dependence, uncomplicated (4) Depression Current Visit: No Status: Chronic Qualifiers: Depression Type: unspecified Qualified Code(s): F32.9 - Major depressive disorder, single episode, unspecified (5) Hypertension Current Visit: Yes Status: Chronic Qualifiers: Hypertension type: essential hypertension Qualified Code(s): I10 - Essential (primary) hypertension (6) Nicotine dependence Current Visit: Yes Status: Chronic Qualifiers: Nicotine product type: cigarettes Substance use status: uncomplicated Qualified Code(s): F17.210 - Nicotine dependence, cigarettes, uncomplicated (7) Schizophrenia Current Visit: No Status: Chronic Qualifiers: Schizophrenia type: unspecified Qualified Code(s): F20.9 - Schizophrenia, unspecified Comment: History. Cleared for Admission S - Detox or Rehab [facility] Level of Care: Medically Managed Claeared for Rehab Admission: Yes Breathalyzer - Breathalyzer Breathalyzer: 0 Urine Drug Screen - Test Device Lot number: [id number] Expiration date: 01/29/21 - Control Is test valid?: Yes - Results Drug screen NEGATIVE: No Urine drug screen results: JIMENA-Cocaine Inpatient Rehab Admission - Rehab Decision to Admit Inpatient rehab admission?: Yes - Initial Determination Are CD services needed?: Yes Free of communicable disease: Yes Not in need of hospitalization: Yes - Rehab Admission Criteria Previous failed treatment: Yes Poor recovery environment: Yes Comorbidities: Yes Lacks judgement: Yes Patient is meeting Inpatient Rehab admission criteria:: Yes
[2019-05-26] MEDS ORDERED: P-EPHED 60MG/TRIPROLIDI 2.5MG TABLET PO PRN (13:45)
[2019-05-26] MEDS ORDERED: LOPERAMIDE HCL 2 MG CAPSULE PO PRN (13:45)
[2019-05-26] MEDS ORDERED: ACETAMINOPHEN 325 MG TABLET (FP) PO PRN (13:45)
[2019-05-26] MEDS ORDERED: MAG HYDROX/AL HYDROX/SIMETH 30 ML UNIT-DOSE CUP PO PRN (13:45)
[2019-05-26] MEDS ORDERED: hydrOXYzine PAMOATE 25 MG CAPSULE (FP) PO PRN (13:45)
[2019-05-26] MEDS ORDERED: MAGNESIUM HYDROX 2400MG/30ML ORAL SUSPENSION 30 ML CUP PO PRN (13:45)
[2019-05-26] MEDS ORDERED: MENTHOL/PHENOL 1 EACH UD MM PRN (13:45)
[2019-05-26] MEDS ORDERED: guaiFENesin 200 MG/10 ML 10 ML UNIT-DOSE CUPS PO PRN (13:45)
[2019-05-26] MEDS ORDERED: IBUPROFEN 400 MG TABLET (FP) PO PRN (13:45)
[2019-05-26] MEDS ORDERED: MAGNESIUM CITRATE 300 ML BOTTLE PO PRN (13:45)
[2019-05-26] MEDS: THIAMINE HCL 100 MG TABLET (FP) PO SCH (21:54)
[2019-05-27] MEDS: PRENATAL VITAMINS W/ FOLIC ACID TABLET (FP) PO SCH (10:23)
--- NOTE | 2019-05-27 10:38 | CONSULT ---
[facility] Psychiatric Consult - Data Date of interview: 05/27/19 Admission source: Self-referred Identifying data: Mr Phipps is a 53 years old single Black male, unemployed receiving SSI, sharing an apt admitted to rehab on 05/26/19 Substance Abuse History: Reports history of alcohol and cocaine use. Refer to addiction counselor's summary for further information Medical History: Significant for bronchial asthma. Smokes 20 cigarettes daily Psychiatric History: Patient is known to this facility from two previous admissions in 2018. He was seen by ALICIA Claros during his first admission in early December [address] Patterson mid May 2018. Patient is very guarded and not forth coming with information. He acknowledges that his first psychiatric contact was in as reported by Dr Patterson but could not tell whether that first contact took place on inpatient as reported by Dr Forde or outpatient. Reports multiple psychiatric hospitalizations at hospitals in [place] and [facility]. He could only name [facility]. Reports that his most recent psychiatric admission was before he went to [facility] more than 10 years ago. Reports currently outpatient psychiatric treatment at the [facility] and he is prescribed Haldol and Cogentin. Reportsprevious suicidal attempts via self- mutilations and once by laying down on train tracks. At present, denies experiencing psychotic symptoms, S/H ideations. However, He is very irritable, somewhat hostile. He was offered psychotropic medications but declined to be on any Physical/Sexual Abuse/Trauma History: Not assessed due to patient attitude Mental Status Exam - Mental Status Exam Alert and Oriented to: Time, Place, Person Cognitive Function: Fair Patient Appearance: Disheveled Mood: Irritable Speech Pattern: Clear Voice Loudness: Normal Thought Process: Intact, Goal Oriented Hallucinations: Denies Suicidal Ideation: Denies Homicidal Ideation: Denies Insight/Judgement: Fair Sleep: Well Appetite: Good Muscle strength/Tone: Normal Gait/Station: Normal Psychiatric Findings - Problem List ([place] 1, 2,3) (1) Schizophrenia Current Visit: No Status: Chronic Qualifiers: Schizophrenia type: unspecified Qualified Code(s): F20.9 - Schizophrenia, unspecified Comment: History. (2) Substance induced mood disorder Current Visit: Yes Status: Acute (3) Alcohol dependence Current Visit: Yes Status: Acute Qualifiers: Substance use status: in remission Qualified Code(s): F10.21 - Alcohol dependence, in remission (4) Cocaine dependence Current Visit: Yes Status: Acute Qualifiers: Substance use status: uncomplicated Qualified Code(s): F14.20 - Cocaine dependence, uncomplicated (5) Nicotine dependence Current Visit: Yes Status: Chronic Qualifiers: Nicotine product type: cigarettes Substance use status: uncomplicated Qualified Code(s): F17.210 - Nicotine dependence, cigarettes, uncomplicated (6) Asthma Current Visit: Yes Status: Chronic Qualifiers: Asthma severity: unspecified severity Asthma persistence: unspecified Asthma complication type: uncomplicated Qualified Code(s): J45.909 - Unspecified asthma, uncomplicated - Initial Treatment Plan Initial Treatment Plan: Patient is unwilling to continue medication at this point. Told health underwriter:" I will let you know if I change my mind"
[2019-05-27 12:35] LABS: URINE APPEARANCE CLEAR; URINE BILIRUBIN NEGATIVE (NEGATIVE); URINE COLOR YELLOW; URINE GLUCOSE (UA) NEGATIVE (NEGATIVE); URINE KETONE NEGATIVE (NEGATIVE); URINE LEUK ESTERASE NEGATIVE (NEGATIVE); URINE NITRITE NEGATIVE (NEGATIVE); URINE PROTEIN NEGATIVE (NEGATIVE); URINE UROBILINOGEN 0.2 mg/dL (0.2-1.0)
[2019-05-27] MEDS: THIAMINE HCL 100 MG TABLET (FP) PO SCH (21:52)
[2019-05-28] MEDS: PRENATAL VITAMINS W/ FOLIC ACID TABLET (FP) PO SCH (11:00)
[2019-05-28] MEDS: THIAMINE HCL 100 MG TABLET (FP) PO SCH (21:55)
[2019-05-29] MEDS: PRENATAL VITAMINS W/ FOLIC ACID TABLET (FP) PO SCH (10:18)
[2019-05-29] MEDS: THIAMINE HCL 100 MG TABLET (FP) PO SCH (21:35)
[2019-05-30] MEDS: PRENATAL VITAMINS W/ FOLIC ACID TABLET (FP) PO SCH (10:28)
[2019-05-30] MEDS: THIAMINE HCL 100 MG TABLET (FP) PO SCH (21:58)
[2019-05-31] MEDS: PRENATAL VITAMINS W/ FOLIC ACID TABLET (FP) PO SCH (10:09)
[2019-05-31] MEDS: THIAMINE HCL 100 MG TABLET (FP) PO SCH (22:10)
[2019-06-01] MEDS: PRENATAL VITAMINS W/ FOLIC ACID TABLET (FP) PO SCH (10:05)
[2019-06-01] MEDS: THIAMINE HCL 100 MG TABLET (FP) PO SCH (21:01)
[2019-06-01] MEDS: MELATONIN 5 MG TABLETS PO PRN (21:01)
[2019-06-02] MEDS: PRENATAL VITAMINS W/ FOLIC ACID TABLET (FP) PO SCH (10:16)
[2019-06-02] MEDS: THIAMINE HCL 100 MG TABLET (FP) PO SCH (21:34)
[2019-06-02] MEDS: MELATONIN 5 MG TABLETS PO PRN (21:35)
[2019-06-03] MEDS: PRENATAL VITAMINS W/ FOLIC ACID TABLET (FP) PO SCH (10:17)
--- NOTE | 2019-06-03 15:12 | PN ---
[facility] Progress Note Note: Patient not responding to melatonin for insomnia. Belsomra 10 mg/hs ordered
[2019-06-03] MEDS: THIAMINE HCL 100 MG TABLET (FP) PO SCH (21:03)
[2019-06-03] MEDS: SUVOREXANT 10 MG TABLET PO PRN (21:03)
[2019-06-04] MEDS: PRENATAL VITAMINS W/ FOLIC ACID TABLET (FP) PO SCH (10:24)
[2019-06-04] MEDS: SUVOREXANT 10 MG TABLET PO PRN (21:53)
[2019-06-04] MEDS: THIAMINE HCL 100 MG TABLET (FP) PO SCH (22:07)
[2019-06-05] MEDS: PRENATAL VITAMINS W/ FOLIC ACID TABLET (FP) PO SCH (10:33)
--- NOTE | 2019-06-05 14:51 | PN ---
[facility] Progress Note Note: Patient was initially seen by commercial underwriter on 05/27/19 for psychiatric consultation. Then, he was undecided about to continue taking his psychotropic medications which are;Haldol and Cogentin. He did not even know dosage of medication. Patient came to commercial underwriter this afternoon requesting to resume medications. [facility] where patient attends was called and was told by staff that patient is on Haldol 20 mg/hs and Cogentin 1 mg/hs prescribed on 04/03/19. Haldol 20 mg/hs and Cogentin 1 mg/hs will be ordered for patient
[2019-06-05] MEDS: THIAMINE HCL 100 MG TABLET (FP) PO SCH (21:03)
[2019-06-05] MEDS: SUVOREXANT 10 MG TABLET PO PRN (21:04)
[2019-06-05] MEDS: BENZTROPINE MESYLATE 1 MG TABLET (FP) PO SCH (21:04)
[2019-06-05] MEDS: HALOPERIDOL 5 MG TABLET (FP) PO SCH (21:04)
[2019-06-06] MEDS: PRENATAL VITAMINS W/ FOLIC ACID TABLET (FP) PO SCH (10:15)
[2019-06-06] MEDS: BENZTROPINE MESYLATE 1 MG TABLET (FP) PO SCH (21:31)
[2019-06-06] MEDS: HALOPERIDOL 5 MG TABLET (FP) PO SCH (21:31)
[2019-06-06] MEDS: SUVOREXANT 10 MG TABLET PO PRN (21:32)
[2019-06-06] MEDS: THIAMINE HCL 100 MG TABLET (FP) PO SCH (21:33)
[2019-06-07] MEDS: PRENATAL VITAMINS W/ FOLIC ACID TABLET (FP) PO SCH (10:00)
[2019-06-07] MEDS ORDERED: PT OWN MED DRAWER 7, Y5N ONE (18:49)
[2019-06-07] MEDS: BENZTROPINE MESYLATE 1 MG TABLET (FP) PO SCH (21:02)
[2019-06-07] MEDS: THIAMINE HCL 100 MG TABLET (FP) PO SCH (21:02)
[2019-06-07] MEDS: HALOPERIDOL 5 MG TABLET (FP) PO SCH (21:03)
[2019-06-07] MEDS: SUVOREXANT 10 MG TABLET PO PRN (21:03)
[2019-06-08] MEDS: PRENATAL VITAMINS W/ FOLIC ACID TABLET (FP) PO SCH (10:28)
[2019-06-08] MEDS: BENZTROPINE MESYLATE 1 MG TABLET (FP) PO SCH (21:40)
[2019-06-08] MEDS: THIAMINE HCL 100 MG TABLET (FP) PO SCH (21:40)
[2019-06-08] MEDS: HALOPERIDOL 5 MG TABLET (FP) PO SCH (21:40)
[2019-06-08] MEDS: SUVOREXANT 10 MG TABLET PO PRN (21:41)
[2019-06-08] MEDS ORDERED: SUVOREXANT 10 MG TABLET PO PRN (22:00)
[2019-06-09] MEDS: PRENATAL VITAMINS W/ FOLIC ACID TABLET (FP) PO SCH (10:15)
[2019-06-09] MEDS: BENZTROPINE MESYLATE 1 MG TABLET (FP) PO SCH (21:02)
[2019-06-09] MEDS: HALOPERIDOL 5 MG TABLET (FP) PO SCH (21:02)
[2019-06-09] MEDS: THIAMINE HCL 100 MG TABLET (FP) PO SCH (21:02)
[2019-06-10] MEDS: PRENATAL VITAMINS W/ FOLIC ACID TABLET (FP) PO SCH (10:02)
--- NOTE | 2019-06-10 17:32 | PN ---
Psychiatric Progress Note Vital Signs: Vital Signs Period Temp Pulse Resp BP Sys/Talamantes Pulse Ox Last 24 Hr 98.3 F 57 18-18 141/82 Date of Session: 06/10/19 Chief Complaint:: "i'm having trouble sleeping." HPI: Patient admitted to [facility] for alcohol and cocaine. Patient reports difficulty sleeping. ROS: Patient is coherent, alert + oriented x3. Patient reports poor sleep. Current Medications: Active Medications Generic Name Dose Route Start Last Admin Trade Name Freq PRN Reason Stop Dose Admin Acetaminophen 650 mg 05/26/19 13:45 Tylenol - PO Q4H PRN FEVER Al Hydroxide/Mg Hydroxide 30 ml 05/26/19 13:45 Mylanta Oral Suspension - PO Q6H PRN DYSPEPSIA Benztropine Mesylate 1 mg 06/05/19 22:00 06/09/19 21:02 Cogentin - PO 1 mg HS ASIF Administration Eucalyptus/Menthol/Phenol/Sorbitol 1 each 05/26/19 13:45 Cepastat Lozenge - MM Q4H PRN SORE THROAT Guaifenesin 10 ml 05/26/19 13:45 Robitussin - PO Q6H PRN COUGH Haloperidol 20 mg 06/05/19 22:00 06/09/19 21:02 Haldol - PO 20 mg HS ASIF Administration Hydroxyzine Pamoate 25 mg 05/26/19 13:45 06/02/19 21:35 Vistaril - PO 25 mg Q4H PRN Administration AGITATION Ibuprofen 400 mg 05/26/19 13:45 Motrin - PO Q6H PRN Pain level 4-6 Loperamide HCl 4 mg 05/26/19 13:45 Imodium - PO Q6H PRN DIARRHEA Magnesium Citrate 300 ml 05/26/19 13:45 Citroma - PO Q48H PRN CONSTIPATION Magnesium Hydroxide 30 ml 05/26/19 13:45 Milk Of Magnesia - PO DAILY PRN CONSTIPATION Multivit/Folic Acid/Iron 1 tab 05/27/19 10:00 06/10/19 10:02 Vitamins ([facility]) - PO Not Given DAILY ASIF Pseudoephedrine/Triprolidine 1 combo 05/26/19 13:45 Actifed - PO TID PRN NASAL CONGESTION Suvorexant 10 mg 06/08/19 22:00 06/09/19 21:03 Belsomra PO 10 mg HS PRN Administration INSOMNIA Thiamine HCl 100 mg 05/26/19 22:00 06/09/19 21:02 Vitamin B1 - PO Not Given HS ASIF Medication(s) Change(s): Yes. Current Side Effect: No Lab tests ordered: No Lab tests reviewed: Yes Provider note:: Patient reports poor sleep despite accepting belsomra 10mg HS prn. Will d/c belsomra 10mg and will order Belsomra 15mg. Patient educated on the importance of sleep hygiene. Benefits and side effects discussed. Verbal consent given. Total face to face time:: 20 Mental Status Exam - Mental Status Exam Alert and Oriented to: Time, Place, Person Cognitive Function: Good Patient Appearance: Well Groomed Mood: Euthymic Affect: Mood Congruent Patient Behavior: Cooperative Speech Pattern: Appropriate Voice Loudness: Normal Thought Process: Goal Oriented Thought Disorder: Not Present Hallucinations: Denies Suicidal Ideation: Denies Homicidal Ideation: Denies Insight/Judgement: Poor Sleep: Poorly Appetite: Fair Muscle strength/Tone: Normal Gait/Station: Normal Psychiatric Treatment Plan - Problem List (1) Alcohol dependence Current Visit: Yes Qualifiers: Substance use status: in remission Qualified Code(s): F10.21 - Alcohol dependence, in remission (2) Cocaine dependence Current Visit: Yes Qualifiers: Substance use status: uncomplicated Qualified Code(s): F14.20 - Cocaine dependence, uncomplicated (3) Substance induced mood disorder Current Visit: Yes (4) Schizophrenia Current Visit: Yes Qualifiers: Schizophrenia type: unspecified Qualified Code(s): F20.9 - Schizophrenia, unspecified Comment: History. (5) Substance-induced sleep disorder Current Visit: Yes
[2019-06-10] MEDS: BENZTROPINE MESYLATE 1 MG TABLET (FP) PO SCH (21:18)
[2019-06-10] MEDS: HALOPERIDOL 5 MG TABLET (FP) PO SCH (21:18)
[2019-06-10] MEDS: THIAMINE HCL 100 MG TABLET (FP) PO SCH (21:18)
[2019-06-10] MEDS ORDERED: SUVOREXANT 15 MG TABLET PO ONE (21:20)
[2019-06-10] MEDS ORDERED: SUVOREXANT 10 MG TABLET PO PRN (22:00)
[2019-06-11] MEDS: PRENATAL VITAMINS W/ FOLIC ACID TABLET (FP) PO SCH (10:07)
[2019-06-11] MEDS: TOLNAFTATE 1% CREAM 15 GM TUBE TP SCH ×2 (12:40→21:04)
[2019-06-11] MEDS: THIAMINE HCL 100 MG TABLET (FP) PO SCH (21:04)
[2019-06-11] MEDS: BENZTROPINE MESYLATE 1 MG TABLET (FP) PO SCH (21:04)
[2019-06-11] MEDS: HALOPERIDOL 5 MG TABLET (FP) PO SCH (21:04)
[2019-06-11] MEDS ORDERED: SUVOREXANT 10 MG TABLET PO PRN (22:09)
[2019-06-11] MEDS: SUVOREXANT 15 MG TABLET PO PRN (22:31)
[2019-06-12] MEDS: TOLNAFTATE 1% CREAM 15 GM TUBE TP SCH ×2 (10:07→22:25)
[2019-06-12] MEDS: PRENATAL VITAMINS W/ FOLIC ACID TABLET (FP) PO SCH (10:43)
[2019-06-12] MEDS: BENZTROPINE MESYLATE 1 MG TABLET (FP) PO SCH (22:25)
[2019-06-12] MEDS: HALOPERIDOL 5 MG TABLET (FP) PO SCH (22:25)
[2019-06-12] MEDS: THIAMINE HCL 100 MG TABLET (FP) PO SCH (22:25)
[2019-06-13] MEDS: SUVOREXANT 15 MG TABLET PO PRN ×2 (01:31→21:07)
[2019-06-13] MEDS: PRENATAL VITAMINS W/ FOLIC ACID TABLET (FP) PO SCH (10:52)
[2019-06-13] MEDS: TOLNAFTATE 1% CREAM 15 GM TUBE TP SCH ×2 (10:52→21:45)
[2019-06-13] MEDS: THIAMINE HCL 100 MG TABLET (FP) PO SCH (21:06)
[2019-06-13] MEDS: HALOPERIDOL 5 MG TABLET (FP) PO SCH (21:06)
[2019-06-13] MEDS: BENZTROPINE MESYLATE 1 MG TABLET (FP) PO SCH (21:07)
[2019-06-14] MEDS: PRENATAL VITAMINS W/ FOLIC ACID TABLET (FP) PO SCH (10:12)
[2019-06-14] MEDS: TOLNAFTATE 1% CREAM 15 GM TUBE TP SCH ×2 (10:12→21:32)
--- NOTE | 2019-06-14 15:46 | PN ---
[facility] Progress Note Note: Psychiatric nurse practitioner note: Belsomra 15mg renewed for X3 days. Verbal consent given.
[2019-06-14] MEDS: THIAMINE HCL 100 MG TABLET (FP) PO SCH (21:32)
[2019-06-14] MEDS: BENZTROPINE MESYLATE 1 MG TABLET (FP) PO SCH (21:32)
[2019-06-14] MEDS: HALOPERIDOL 5 MG TABLET (FP) PO SCH (21:32)
[2019-06-14] MEDS: SUVOREXANT 15 MG TABLET PO PRN (21:33)
[2019-06-15] MEDS: TOLNAFTATE 1% CREAM 15 GM TUBE TP SCH ×2 (10:12→21:46)
[2019-06-15] MEDS: PRENATAL VITAMINS W/ FOLIC ACID TABLET (FP) PO SCH (10:12)
[2019-06-15] MEDS: SUVOREXANT 15 MG TABLET PO PRN (21:46)
[2019-06-15] MEDS: THIAMINE HCL 100 MG TABLET (FP) PO SCH (21:46)
[2019-06-15] MEDS: HALOPERIDOL 5 MG TABLET (FP) PO SCH (21:46)
[2019-06-15] MEDS: BENZTROPINE MESYLATE 1 MG TABLET (FP) PO SCH (21:46)
[2019-06-16] MEDS: PRENATAL VITAMINS W/ FOLIC ACID TABLET (FP) PO SCH (10:04)
[2019-06-16] MEDS: TOLNAFTATE 1% CREAM 15 GM TUBE TP SCH ×2 (10:04→21:02)
[2019-06-16] MEDS: HALOPERIDOL 5 MG TABLET (FP) PO SCH (21:01)
[2019-06-16] MEDS: BENZTROPINE MESYLATE 1 MG TABLET (FP) PO SCH (21:01)
[2019-06-16] MEDS: THIAMINE HCL 100 MG TABLET (FP) PO SCH (21:01)
[2019-06-16] MEDS: SUVOREXANT 15 MG TABLET PO PRN (21:03)
[2019-06-17] MEDS: TOLNAFTATE 1% CREAM 15 GM TUBE TP SCH ×2 (10:32→21:27)
[2019-06-17] MEDS: PRENATAL VITAMINS W/ FOLIC ACID TABLET (FP) PO SCH (10:32)
[2019-06-17] MEDS: HALOPERIDOL 5 MG TABLET (FP) PO SCH (21:26)
[2019-06-17] MEDS: THIAMINE HCL 100 MG TABLET (FP) PO SCH (21:26)
[2019-06-17] MEDS: BENZTROPINE MESYLATE 1 MG TABLET (FP) PO SCH (21:27)
[2019-06-17] MEDS: SUVOREXANT 15 MG TABLET PO PRN (21:27)
[2019-06-18] MEDS: TOLNAFTATE 1% CREAM 15 GM TUBE TP SCH ×2 (10:43→21:02)
[2019-06-18] MEDS: PRENATAL VITAMINS W/ FOLIC ACID TABLET (FP) PO SCH (10:43)
--- NOTE | 2019-06-18 14:36 | PN ---
[facility] Progress Note Note: Psychiatric nurse practitioner note: Belsorma 15mg HS renewed X3 days. Verbal consent given.
[2019-06-18] MEDS: BENZTROPINE MESYLATE 1 MG TABLET (FP) PO SCH (21:02)
[2019-06-18] MEDS: HALOPERIDOL 5 MG TABLET (FP) PO SCH (21:02)
[2019-06-18] MEDS: THIAMINE HCL 100 MG TABLET (FP) PO SCH (21:02)
[2019-06-18] MEDS: SUVOREXANT 15 MG TABLET PO PRN (21:03)
[2019-06-19] MEDS: PRENATAL VITAMINS W/ FOLIC ACID TABLET (FP) PO SCH (10:55)
[2019-06-19] MEDS: TOLNAFTATE 1% CREAM 15 GM TUBE TP SCH ×2 (10:55→22:14)
[2019-06-19] MEDS: HALOPERIDOL 5 MG TABLET (FP) PO SCH (22:14)
[2019-06-19] MEDS: BENZTROPINE MESYLATE 1 MG TABLET (FP) PO SCH (22:14)
[2019-06-19] MEDS: THIAMINE HCL 100 MG TABLET (FP) PO SCH (22:14)
[2019-06-20] MEDS: SUVOREXANT 15 MG TABLET PO PRN ×2 (01:59→21:06)
[2019-06-20] MEDS ORDERED: PT OWN MED DRAWER 7, Y5N ONE (09:05)
[2019-06-20] MEDS: TOLNAFTATE 1% CREAM 15 GM TUBE TP SCH ×2 (10:56→21:05)
[2019-06-20] MEDS: PRENATAL VITAMINS W/ FOLIC ACID TABLET (FP) PO SCH (10:56)
[2019-06-20] MEDS: HALOPERIDOL 5 MG TABLET (FP) PO SCH (21:05)
[2019-06-20] MEDS: BENZTROPINE MESYLATE 1 MG TABLET (FP) PO SCH (21:05)
[2019-06-20] MEDS: THIAMINE HCL 100 MG TABLET (FP) PO SCH (21:05)
[2019-06-21 07:20] VITALS: PULSE 55
[2019-06-21] MEDS: PRENATAL VITAMINS W/ FOLIC ACID TABLET (FP) PO SCH (10:03)
[2019-06-21] MEDS: TOLNAFTATE 1% CREAM 15 GM TUBE TP SCH ×2 (10:03→21:45)
--- NOTE | 2019-06-21 14:58 | PN ---
[facility] Progress Note Note: Patient is scheduled for discharge tomorrow. Scripts for 30 days supply of medications(Haldol 20 mg/hs, Cogentin 1 mg/hs) will be electronically transmitted to [facility] at [address] [place], [place] [id number]
[2019-06-21] MEDS: THIAMINE HCL 100 MG TABLET (FP) PO SCH (21:45)
[2019-06-21] MEDS: HALOPERIDOL 5 MG TABLET (FP) PO SCH (21:45)
[2019-06-21] MEDS: SUVOREXANT 15 MG TABLET PO PRN (21:45)
[2019-06-21] MEDS: BENZTROPINE MESYLATE 1 MG TABLET (FP) PO SCH (21:45)
[2019-06-21] MEDS ORDERED: SUVOREXANT 10 MG TABLET PO PRN (22:00)
[2019-06-22 07:20] VITALS: BP 127/78; TEMP 98.2
--- NOTE | 2019-06-22 15:55 | DS ---
[facility] Rehab Discharge Summary - [facility] Rehab Discharge Summary Admission Date: 05/26/19 Discharge Date: 06/22/19 - History Present History: Alcohol dependence, Cocaine dependence - Discharge Physical Exam Vital Signs: Vital Signs Temperature 98.2 F 06/22/19 07:19 Pulse Rate 55 L 06/22/19 07:19 Respiratory Rate 18 06/22/19 07:19 Blood Pressure 127/78 06/22/19 07:19 O2 Sat by Pulse Oximetry (%) Pertinent Admission Physical Exam Findings: ROS: denies etoh, cocaine cravings, sweating, anxiety and restlessness. PE: alert and oriented x 3 skin warm and dry +perrla, eoms intact bl car s1s2, rrr resp cta bl, no wheezes or rales ext full rom, no tremors amb ad ladarius - Treatment Discharge Condition: Discharge condition good Hospital Course: Patient attended groups, seen and treated by psych and states he accomplished all rehab goals. Patient discharged medically stable and denies SI/HI. Aftercare arranged for [facility] outpatient transitional center. Patient encouraged to follow up with pcp as recommended and continue with group meetings to prevent relapse. Vital Signs Temperature 98.2 F 06/22/19 07:19 Pulse Rate 55 L 06/22/19 07:19 Respiratory Rate 18 06/22/19 07:19 Blood Pressure 127/78 06/22/19 07:19 O2 Sat by Pulse Oximetry (%) Laboratory Tests 05/27/19 10:50 Urine Color Yellow Urine Appearance Clear Urine pH 8.0 D Ur Specific Berger 1.020 Urine Protein Negative Urine Glucose (UA) Negative Urine Ketones Negative Urine Blood Negative Urine Nitrite Negative Urine Bilirubin Negative Urine Urobilinogen 0.2 Ur Leukocyte Esterase Negative - Medication Discharge Medications: Ambulatory Orders Benztropine Mesylate [Cogentin -] 1 mg PO HS #30 tablet 06/21/19 Haloperidol [Haldol -] 20 mg PO HS #120 tablet 06/21/19 - Medication-Assisted Treatment (MAT) Medication-Assisted Treatment (MAT): No - Discharge Instructions Diet, activity, other medical instructions: Diet: Activity: Other medical instructions: - Follow-up Referral Minutes to complete discharge: 30 - AMA Did Patient Leave Against Medical Advice: No
== END 2019-06-22 10:12 | disposition home or self-care (01) | DRG 772 ==
LOC: YASAS 10:38 → Y3W 14:07
PROVIDERS: ADMIT Neuromusculoskeletal Medicine & OMM; ATTEND Neuromusculoskeletal Medicine & OMM
PROC: HZ42ZZZ Group Counseling for Substance Abuse Treatment, Cognitive-Behavioral (ICD-10-PCS; principal; 2019-05-26)
DX: F10.20 Alcohol dependence, uncomplicated (principal); F14.20 Cocaine dependence, uncomplicated; F17.210 Nicotine dependence, cigarettes, uncomplicated; F19.282 Other psychoactive substance dependence with psychoactive substance-induced sleep disorder; F19.24 Other psychoactive substance dependence with psychoactive substance-induced mood disorder; F20.9 Schizophrenia, unspecified; F32.9 Major depressive disorder, single episode, unspecified; I10 Essential (primary) hypertension; E78.00 Pure hypercholesterolemia, unspecified; J45.909 Unspecified asthma, uncomplicated
CPT/HCPCS: 81003